=== PATIENT | male | born 1945 | race Caucasian/White ===

== ENCOUNTER 2019-06-01 06:35 | Day surgery (SDC) | payer MEDICARE ==
[2019-05-31 14:41] LABS: BASOPHILS # (AUTO) 0.1 X10'3 (0-0.2); BASOPHILS % (AUTO) 0.9 % (0-1); EOSINOPHILS # (AUTO) 0.2 X10'3 (0-0.9); EOSINOPHILS % (AUTO) 2.8 % (0-6); HEMATOCRIT 33.5 % (42.0-52.0); HEMOGLOBIN 10.8 g/dl (14.0-17.9); LYMPHOCYTES # (AUTO) 0.8 X10'3 (1.1-4.8); LYMPHOCYTES % (AUTO) 12.8 % (21-51); MEAN CORPUSCULAR HEMOGLOBIN 25.6 PG (27.0-31.0); MEAN CORPUSCULAR HGB CONC 32.3 g/dL (33.0-36.5); MEAN CORPUSCULAR VOLUME 79.4 FL (78-98); MEAN PLATELET VOLUME 7.4 FL (7.4-10.4); MONOCYTES # (AUTO) 0.5 X10'3 (0-0.9); MONOCYTES % (AUTO) 7.5 % (2-12); NEUTROPHILS # (AUTO) 4.6 X10'3 (1.8-7.7); PLATELET COUNT 271 X10'3 (140-440); RED BLOOD COUNT 4.22 X10'6 (4.70-6.10); RED CELL DISTRIBUTION WIDTH 17.9 % (11.5-14.5); WHITE BLOOD COUNT 6.1 X10'3 (4.5-11.0)
[2019-05-31 14:55] LABS: ANION GAP 5 (8-16); BLOOD UREA NITROGEN 40 MG/DL (7-18); BUN/CREATININE RATIO 20.6 (5.4-32.0); CALCIUM 8.8 MG/DL (8.5-10.1); CHLORIDE 101 MMOL/L (99-107); CREATININE 1.94 MG/DL (0.60-1.10); GLUCOSE 141 MG/DL (70-104); POTASSIUM 3.5 MMOL/L (3.5-5.1); SODIUM 144 MMOL/L (135-145); TOTAL CARBON DIOXIDE 38.3 MMOL/L (24-32); eGFR 34 ML/MIN
[~2019-06-01] VITALS: Ht 182.9 cm; Wt 130.4 kg
[2019-06-01] VITALS (12 sets, daily range): BP systolic 133–166; BP diastolic 55–95
[~2019-06-01 06:35] MED LIST: AMLO10TA PO; ATEN50TA8 PO; DAPT500V6 IV; FURO-149 PO; GABA-530 PO; HYDR-4353 PO; INSU100V13 SQ; LANTUS SQ; OMEP-50 PO; TRAM50TA2 PO; TRAZ-251 PO
[2019-06-01] MEDS ORDERED: diphenhydrAMINE 25mg capsule PO ONE (07:00)
[2019-06-01] MEDS ORDERED: amiodarone in dextrose, iso-osm 150mg/100ml bag IV ONE (07:00)
[2019-06-01] MEDS ORDERED: MIDAZolam 5mg/ml 2ml vial IV ONE (07:00)
[2019-06-01] MEDS ORDERED: normal saline 1000ml 1,000 ML IV SCH (07:00)
[2019-06-01] MEDS ORDERED: LORazepam 0.5 MG tablet PO ONE (07:00)
[2019-06-01] MEDS ORDERED: morphine 10mg/ml inj. IV ONE (07:00)
[2019-06-01] MEDS ORDERED: atropine 0.1mg/ml 10ml syringe IV ONE (07:00)
[2019-06-01] MEDS ORDERED: ATOR10TA87 PO (08:18)
[2019-06-01] MEDS ORDERED: HYDR-3686 PO (08:18)
[2019-06-01] MEDS ORDERED: BUSP10TA11 PO (08:18)
[2019-06-01] MEDS ORDERED: ASPI-1265 PO (08:18)
[2019-06-01] MEDS ORDERED: METO5TAB7 PO (08:18)
[2019-06-01] MEDS ORDERED: APIX5TAB3 PO (08:18)
[2019-06-01] MEDS ORDERED: ROPI0.5T2 PO (08:18)
== END 2019-06-01 10:45 | disposition home or self-care (01) ==
LOC: SSTAY O 06:35
PROVIDERS: ATTEND Internal Medicine Cardiovascular Disease
DX: I48.1 Persistent atrial fibrillation (principal); E11.9 Type 2 diabetes mellitus without complications; I10 Essential (primary) hypertension; I27.20 Pulmonary hypertension, unspecified; Z79.82 Long term (current) use of aspirin; Z79.899 Other long term (current) drug therapy; Z79.4 Long term (current) use of insulin
CPT/HCPCS: 36415; 80048; 82948; 85025; 85610; 92960; J0282; J0461; J2250; J2270; J7030; Q0163; 93005

== ENCOUNTER 2019-06-06 03:30 | Inpatient (IN) | payer MEDICARE ==
[~2019-06-06] VITALS: Ht 182.9 cm; Wt 129.4 kg
[~2019-06-06 03:30] MED LIST changes: +APIX5TAB3 PO; +ASPI-1265 PO; +ATOR10TA87 PO; +BUSP10TA11 PO; -DAPT500V6 IV; +HYDR-3686 PO; +METO5TAB7 PO; +ROPI0.5T2 PO
[2019-06-06] MEDS ORDERED: furosemide 10 MG/1 ML 10ml inj IV ONE (04:15)
[2019-06-06 04:49] LABS: BASOPHILS # (AUTO) 0.1 X10'3 (0-0.2); BASOPHILS % (AUTO) 0.9 % (0-1); EOSINOPHILS # (AUTO) 0.2 X10'3 (0-0.9); EOSINOPHILS % (AUTO) 2.6 % (0-6); HEMATOCRIT 33.3 % (42.0-52.0); HEMOGLOBIN 10.7 g/dl (14.0-17.9); LYMPHOCYTES # (AUTO) 0.6 X10'3 (1.1-4.8); LYMPHOCYTES % (AUTO) 8.4 % (21-51); MEAN CORPUSCULAR HEMOGLOBIN 25.8 PG (27.0-31.0); MEAN CORPUSCULAR HGB CONC 32.3 g/dL (33.0-36.5); MEAN CORPUSCULAR VOLUME 79.9 FL (78-98); MEAN PLATELET VOLUME 7.3 FL (7.4-10.4); MONOCYTES # (AUTO) 0.5 X10'3 (0-0.9); MONOCYTES % (AUTO) 6.4 % (2-12); NEUTROPHILS # (AUTO) 6.1 X10'3 (1.8-7.7); NEUTROPHILS % (AUTO) 81.7 % (42-75); PARTIAL THROMBOPLASTIN TIME 32 SECONDS (22-32); PLATELET COUNT 242 X10'3 (140-440); RED BLOOD COUNT 4.17 X10'6 (4.70-6.10); RED CELL DISTRIBUTION WIDTH 17.7 % (11.5-14.5); WHITE BLOOD COUNT 7.5 X10'3 (4.5-11.0)
[2019-06-06 04:54] LABS: ALANINE AMINOTRANSFERASE 16 U/L (12-78); ALBUMIN/GLOBULIN RATIO 0.7 (1.1-1.5); ALKALINE PHOSPHATASE 86 IU/L (46-116); ANION GAP 6 (8-16); ASPARTATE AMINO TRANSFERASE 19 U/L (10-37); BILIRUBIN,TOTAL 0.7 MG/DL (0.1-1.0); BLOOD UREA NITROGEN 27 MG/DL (7-18); BUN/CREATININE RATIO 16.8 (5.4-32.0); CALCIUM 8.6 MG/DL (8.5-10.1); CHLORIDE 102 MMOL/L (99-107); CREATININE 1.61 MG/DL (0.60-1.10); GLUCOSE 105 MG/DL (70-104); POTASSIUM 3.4 MMOL/L (3.5-5.1); SODIUM 145 MMOL/L (135-145); TOTAL CARBON DIOXIDE 37.4 MMOL/L (24-32); TOTAL PROTEIN 7.3 G/DL (6.4-8.2); eGFR 42 ML/MIN
[2019-06-06] MEDS ORDERED: magnesium hydroxide 30ml (MOM) UD suspension PO PRN (05:45)
[2019-06-06] MEDS ORDERED: mag hydrox/Alum hydrox/simeth 30ml oral suspension PO PRN (05:45)
[2019-06-06] MEDS ORDERED: acetaminophen 325mg tablet PO PRN (05:45)
[2019-06-06] MEDS ORDERED: ondansetron/PF 4mg/2ml inj IV PRN (05:45)
[2019-06-06 05:56] LABS: ABG HCO3 36.7 mmol/L (22.0-26.0); ABG OXYGEN SATURATION 95.2 % (95-98); ABG PCO2 (T) 54.1 mmHg (35.0-45.0); ABG PH (T) 7.449 (7.350-7.450); ABG PO2 (T) 76.2 mmHg (83-108); ALLEN'S TEST Positive; FCOHb 1.5 % (0.5-1.5); FLOW 8 L/min; FMetHb 0.2 % (0.3-1.12); FO2Hb 93.6 % (94-100); PATIENT TEMPERATURE 37.1; TOTAL HEMOGLOBIN 11.8 G/dl (14.0-17.9)
--- NOTE | 2019-06-06 08:15 | NUR ---
Patient in room ED 15. I have received report from Haydee FLOWERS and had the opportunity to ask questions and assume patient care.
[2019-06-06 08:30] VITALS: BP 157/70
[2019-06-06] MEDS ORDERED: aspirin 325mg tablet PO SCH (08:30)
--- NOTE | 2019-06-06 08:30 | NUR ---
Received patient from ER. Patient stable and vital signs within normal limits. Patient oriented to room and call light.
[2019-06-06] MEDS ORDERED: magnesium Cl slow-release 64mg tablet PO PRN (10:10)
[2019-06-06] MEDS ORDERED: magnesium 4gm in 100ml NS 100 ML IV PRN (10:10)
[2019-06-06] MEDS ORDERED: traMADol 50MG tablet PO PRN (10:10)
[2019-06-06] MEDS ORDERED: potassium Cl 20 mEq SR tablet PO PRN (10:10)
[2019-06-06] MEDS ORDERED: potassium CL 10mEq/100ml bag 100 ML IV PRN (10:10)
--- NOTE | 2019-06-06 10:12 | NUR ---
Informed Dr. Garcia of patients heart rate. Instructed to stop Amiodarone drip and push 500mcg of digoxin. Addendum: 06/06/19 at 1014 by Mague Barahona RN Note entered in error, incorrect patient.
[2019-06-06] MEDS ORDERED: methylPREDNISolone sod succ 125mg/2ml vial IV ONE (10:20)
[2019-06-06] MEDS: bumetanide 0.25mg/ml 4ml vial IV SCH ×2 (10:46→20:08)
[2019-06-06] MEDS: gabapentin 300mg capsule PO SCH ×2 (10:48→20:15)
[2019-06-06] MEDS: apixaban 5mg tablet PO SCH ×2 (10:49→20:14)
[2019-06-06] MEDS: amLODIPine 5mg tablet PO SCH (10:49)
[2019-06-06] MEDS: atenolol 50mg tablet PO SCH (10:52)
[2019-06-06 11:00] VITALS: BP 140/62
[2019-06-06] MEDS: azithromycin/NS 500mg/250ml 250 ML IV SCH (11:09)
[2019-06-06] MEDS: potassium Cl 20 mEq SR tablet PO PRN (12:19)
[2019-06-06] MEDS ORDERED: hydrOXYzine 25 MG tablet PO SCH (13:00)
[2019-06-06] MEDS: ipratropium/albuterol 3ml nebule NEB SCH ×3 (14:01→23:21)
--- NOTE | 2019-06-06 14:05 | NUR ---
Spoke with Dr. Dasilva regarding patient being anxious about difficulty breathing. Patients vitals within normal limits. Dr. Dasilva instructed to give Ativan PRN for anxiety.
[2019-06-06] MEDS: LORazepam 1 MG tablet PO PRN ×2 (14:16→21:47)
[2019-06-06] MEDS: methylPREDNISolone sod succ 125mg/2ml vial IV SCH ×2 (14:17→20:13)
[2019-06-06] MEDS: CefTRIAXone/D5W-Rocephin 1gm 50 ML IV SCH (14:18)
[2019-06-06 15:00] VITALS: BP 115/72
--- NOTE | 2019-06-06 17:20 | NUR ---
Orientee documentation: I have reviewed and agree with all interventions, assessments performed and documented by Mague FLOWERS. Orientee Medication Administration: For this medication-pass time frame, all medication were reviewed, dispensed, administered and documented per hospital policy by Mague FLOWERS.
[2019-06-06 18:00] VITALS: BP 118/59
--- NOTE | 2019-06-06 18:26 | NUR ---
Problems reprioritized. Patient report given, questions answered & plan of care reviewed with Kailyn RN. Patient stable at time report given.
--- NOTE | 2019-06-06 18:45 | NUR ---
Patient in room PCU 3023. I have received report from Leana FLOWERS and had the opportunity to ask questions and assume patient care.
[2019-06-06] MEDS ORDERED: gabapentin 100mg capsule PO SCH (20:00)
[2019-06-06] MEDS ORDERED: furosemide 40mg tablet PO SCH (20:00)
[2019-06-06] MEDS ORDERED: traZODone 50mg tablet PO SCH (20:00)
[2019-06-06] MEDS: furosemide 40mg/4ml inj IV SCH (20:13)
[2019-06-06] MEDS: busPIRone 5mg tablet PO SCH (20:14)
[2019-06-06] MEDS: traZODone 50mg tablet PO SCH (20:15)
[2019-06-06] MEDS: ROPINIRole 0.25mg tablet PO SCH (20:15)
[2019-06-06] MEDS ORDERED: atenolol 50mg tablet PO SCH (21:00)
[2019-06-06 23:00] VITALS: BP 111/79
--- NOTE | 2019-06-07 00:14 | NUR ---
PAGER ID: [phone] MESSAGE: Usman Clifton pt Almas Malik, [id number] pt could not sleep and anxious, requests something for sleeping. He got Trazadone @2000 and Ativan po @0130, Kailyn [phone]!
--- NOTE | 2019-06-07 00:17 | NUR ---
Dr. cyr gave an order of 10mg ambian
[2019-06-07] MEDS: zolpidem 5mg tablet PO PRN ×2 (00:25→23:46)
--- NOTE | 2019-06-07 01:38 | NUR ---
pt was moved to 3026 A near nurses' station for better observation
[2019-06-07] MEDS: methylPREDNISolone sod succ 125mg/2ml vial IV SCH ×4 (01:43→21:28)
[2019-06-07 03:00] VITALS: BP 106/50
[2019-06-07] MEDS: ipratropium/albuterol 3ml nebule NEB SCH ×6 (03:29→23:21)
[2019-06-07 05:15] LABS: BASOPHILS % (AUTO) 0.1 % (0-1); EOSINOPHILS % (AUTO) 0 % (0-6); HEMATOCRIT 32.4 % (42.0-52.0); HEMOGLOBIN 10.5 g/dl (14.0-17.9); LYMPHOCYTES # (AUTO) 0.3 X10'3 (1.1-4.8); LYMPHOCYTES % (AUTO) 8.1 % (21-51); MEAN CORPUSCULAR HEMOGLOBIN 25.7 PG (27.0-31.0); MEAN CORPUSCULAR HGB CONC 32.3 g/dL (33.0-36.5); MEAN CORPUSCULAR VOLUME 79.6 FL (78-98); MEAN PLATELET VOLUME 7.6 FL (7.4-10.4); MONOCYTES # (AUTO) 0.1 X10'3 (0-0.9); MONOCYTES % (AUTO) 1.6 % (2-12); NEUTROPHILS # (AUTO) 3.6 X10'3 (1.8-7.7); NEUTROPHILS % (AUTO) 90.2 % (42-75); PLATELET COUNT 223 X10'3 (140-440); RED BLOOD COUNT 4.08 X10'6 (4.70-6.10); RED CELL DISTRIBUTION WIDTH 17.9 % (11.5-14.5)
[2019-06-07 05:43] LABS: ALANINE AMINOTRANSFERASE 16 U/L (12-78); ALBUMIN/GLOBULIN RATIO 0.7 (1.1-1.5); ALKALINE PHOSPHATASE 88 IU/L (46-116); ANION GAP 11 (8-16); ASPARTATE AMINO TRANSFERASE 19 U/L (10-37); BILIRUBIN,TOTAL 0.9 MG/DL (0.1-1.0); BLOOD UREA NITROGEN 43 MG/DL (7-18); BUN/CREATININE RATIO 20.2 (5.4-32.0); CALCIUM 8.7 MG/DL (8.5-10.1); CHLORIDE 93 MMOL/L (99-107); CREATININE 2.13 MG/DL (0.60-1.10); PHOSPHORUS 4.7 MG/DL (2.3-4.5); POTASSIUM 3.8 MMOL/L (3.5-5.1); SODIUM 136 MMOL/L (135-145); TOTAL CARBON DIOXIDE 32.5 MMOL/L (24-32); TOTAL PROTEIN 7.5 G/DL (6.4-8.2); eGFR 31 ML/MIN
[2019-06-07 05:47] LABS: GLUCOSE 511 MG/DL (70-104)
[2019-06-07 06:00] VITALS: BP 121/54
--- NOTE | 2019-06-07 06:16 | NUR ---
Patient in room PCU 3026. I have received report from Kailyn FLOWERS and had the opportunity to ask questions and assume patient care.
--- NOTE | 2019-06-07 06:18 | NUR ---
Problems reprioritized. Patient report given, questions answered & plan of care reviewed with Romulo FLOWERS.
--- NOTE | 2019-06-07 06:21 | NUR ---
Dr. cyr gave an order to put pt on hyper/hypoglycemic protocol
[2019-06-07] MEDS ORDERED: dextrose 50%-water 50ml dispensing syringe IV PRN ×2 (06:25)
[2019-06-07] MEDS ORDERED: glucagon, human recombinant 1mg kit SUBCUT PRN (06:25)
[2019-06-07] MEDS ORDERED: dextrose ORAL solution 15 GM/59 ML bottle PO PRN ×2 (06:25)
[2019-06-07 07:15] LABS: HEMOGLOBIN A1C 6.1 % (4.5-6.2)
[2019-06-07] MEDS ORDERED: apixaban 5mg tablet PO SCH (08:00)
[2019-06-07] MEDS: bumetanide 0.25mg/ml 4ml vial IV SCH ×2 (08:00→21:26)
[2019-06-07] MEDS ORDERED: non-formulary drug (Amlodipine Besylate 1 TABLET) PO SCH (08:00)
[2019-06-07] MEDS: insulin Lispro (HumaLOG) vial - multi-dose SQ SCH ×4 (08:40→22:52)
[2019-06-07] MEDS: pantoprazole 40mg Tablet.DR PO SCH (09:08)
[2019-06-07] MEDS: busPIRone 5mg tablet PO SCH ×2 (09:08→21:28)
[2019-06-07] MEDS: gabapentin 300mg capsule PO SCH ×2 (09:08→21:43)
[2019-06-07] MEDS: amLODIPine 5mg tablet PO SCH (09:09)
[2019-06-07] MEDS: apixaban 5mg tablet PO SCH ×2 (09:09→21:43)
[2019-06-07] MEDS: aspirin 81mg tab.chew PO SCH (09:09)
[2019-06-07] MEDS: atenolol 50mg tablet PO SCH (09:09)
[2019-06-07] MEDS: atorvastatin 10mg tablet PO SCH (09:09)
[2019-06-07 11:00] VITALS: BP 118/51
[2019-06-07] MEDS: metolazone 2.5mg tablet PO SCH (12:40)
[2019-06-07] MEDS: furosemide 40mg/4ml inj IV SCH ×2 (12:42→21:27)
[2019-06-07] MEDS: azithromycin/NS 500mg/250ml 250 ML IV SCH (12:56)
[2019-06-07 15:00] VITALS: BP 103/46
[2019-06-07] MEDS: LORazepam 1 MG tablet PO PRN (15:21)
[2019-06-07] MEDS: CefTRIAXone/D5W-Rocephin 1gm 50 ML IV SCH (15:33)
[2019-06-07 18:00] VITALS: BP 113/42
--- NOTE | 2019-06-07 18:20 | NUR ---
Problems reprioritized. Patient report given, questions answered & plan of care reviewed with Kailyn FLOWERS. Patient stable at at transfer of care.
--- NOTE | 2019-06-07 18:29 | NUR ---
Problems reprioritized. Patient report given, questions answered & plan of care reviewed with Kailyn FLOWERS.
[2019-06-07] MEDS: traZODone 50mg tablet PO SCH (21:43)
[2019-06-07] MEDS: ROPINIRole 0.25mg tablet PO SCH (21:44)
[2019-06-07] MEDS: insulin glargine (Lantus) pen - multi-dose SQ SCH (21:59)
[2019-06-07 23:00] VITALS: BP 114/57
[2019-06-08] MEDS: methylPREDNISolone sod succ 125mg/2ml vial IV SCH ×4 (02:38→21:18)
[2019-06-08] MEDS: ipratropium/albuterol 3ml nebule NEB SCH ×8 (03:00→23:45)
[2019-06-08 06:00] VITALS: BP 134/56
--- NOTE | 2019-06-08 06:19 | NUR ---
Problems reprioritized. Patient report given, questions answered & plan of care reviewed with Romulo FLOWERS.
--- NOTE | 2019-06-08 06:34 | NUR ---
Patient in room PCU 3026. I have received report from Kailyn FLOWERS and had the opportunity to ask questions and assume patient care.
[2019-06-08] MEDS: azithromycin 250mg tablet PO SCH (08:50)
[2019-06-08] MEDS: apixaban 5mg tablet PO SCH ×2 (08:50→19:35)
[2019-06-08] MEDS: busPIRone 5mg tablet PO SCH ×2 (08:50→19:35)
[2019-06-08] MEDS: gabapentin 300mg capsule PO SCH ×2 (08:50→19:35)
[2019-06-08] MEDS: aspirin 81mg tab.chew PO SCH (08:51)
[2019-06-08] MEDS: amLODIPine 5mg tablet PO SCH (08:51)
[2019-06-08] MEDS: metolazone 2.5mg tablet PO SCH (08:51)
[2019-06-08] MEDS: atenolol 50mg tablet PO SCH (08:51)
[2019-06-08] MEDS: atorvastatin 10mg tablet PO SCH (08:51)
[2019-06-08] MEDS: CefTRIAXone/D5W-Rocephin 1gm 50 ML IV SCH (08:52)
[2019-06-08] MEDS: furosemide 40mg/4ml inj IV SCH ×2 (08:52→21:17)
[2019-06-08] MEDS: bumetanide 0.25mg/ml 4ml vial IV SCH ×2 (08:52→21:18)
[2019-06-08] MEDS: pantoprazole 40mg Tablet.DR PO SCH (08:57)
[2019-06-08 09:10] LABS: BASOPHILS % (AUTO) 0.1 % (0-1); EOSINOPHILS % (AUTO) 0 % (0-6); HEMOGLOBIN 10.7 g/dl (14.0-17.9); LYMPHOCYTES # (AUTO) 0.5 X10'3 (1.1-4.8); LYMPHOCYTES % (AUTO) 6.4 % (21-51); MEAN CORPUSCULAR HEMOGLOBIN 25.6 PG (27.0-31.0); MEAN CORPUSCULAR HGB CONC 32.4 g/dL (33.0-36.5); MEAN CORPUSCULAR VOLUME 79.1 FL (78-98); MEAN PLATELET VOLUME 7.7 FL (7.4-10.4); MONOCYTES # (AUTO) 0.1 X10'3 (0-0.9); MONOCYTES % (AUTO) 1.6 % (2-12); NEUTROPHILS # (AUTO) 6.6 X10'3 (1.8-7.7); NEUTROPHILS % (AUTO) 91.9 % (42-75); PLATELET COUNT 233 X10'3 (140-440); RED BLOOD COUNT 4.17 X10'6 (4.70-6.10); RED CELL DISTRIBUTION WIDTH 17.9 % (11.5-14.5); WHITE BLOOD COUNT 7.2 X10'3 (4.5-11.0)
[2019-06-08] MEDS: insulin Lispro (HumaLOG) vial - multi-dose SQ SCH ×3 (09:25→19:25)
[2019-06-08 09:36] LABS: ALANINE AMINOTRANSFERASE 16 U/L (12-78); ALBUMIN/GLOBULIN RATIO 0.7 (1.1-1.5); ALKALINE PHOSPHATASE 78 IU/L (46-116); ANION GAP 6 (8-16); ASPARTATE AMINO TRANSFERASE 29 U/L (10-37); BILIRUBIN,TOTAL 0.5 MG/DL (0.1-1.0); BLOOD UREA NITROGEN 60 MG/DL (7-18); BUN/CREATININE RATIO 33.1 (5.4-32.0); CALCIUM 8.7 MG/DL (8.5-10.1); CHLORIDE 99 MMOL/L (99-107); CREATININE 1.81 MG/DL (0.60-1.10); GLUCOSE 371 MG/DL (70-104); MAGNESIUM 2.4 MG/DL (1.5-2.4); PHOSPHORUS 4.6 MG/DL (2.3-4.5); POTASSIUM 3.6 MMOL/L (3.5-5.1); SODIUM 141 MMOL/L (135-145); TOTAL CARBON DIOXIDE 35.7 MMOL/L (24-32); TOTAL PROTEIN 7.3 G/DL (6.4-8.2); eGFR 37 ML/MIN
[2019-06-08 11:00] VITALS: BP 119/45
[2019-06-08] MEDS ORDERED: insulin Lispro (HumaLOG) vial - multi-dose SQ ONE (12:20)
[2019-06-08 15:00] VITALS: BP 117/52
--- NOTE | 2019-06-08 18:29 | NUR ---
Problems reprioritized. Patient report given, questions answered & plan of care reviewed with Candy FLOWERS. Patient stable at time of transfer of care.
[2019-06-08 19:00] VITALS: BP 116/50
[2019-06-08] MEDS: ROPINIRole 0.25mg tablet PO SCH (20:17)
[2019-06-08] MEDS: traZODone 50mg tablet PO SCH (20:17)
[2019-06-08] MEDS: zolpidem 5mg tablet PO PRN (21:18)
[2019-06-08] MEDS: LORazepam 1 MG tablet PO PRN (21:18)
[2019-06-08] MEDS: insulin glargine (Lantus) pen - multi-dose SQ SCH (21:32)
[2019-06-08 23:00] VITALS: BP 115/67
[2019-06-09] MEDS: methylPREDNISolone sod succ 125mg/2ml vial IV SCH ×2 (02:35→08:13)
[2019-06-09 03:00] VITALS: BP 124/46
[2019-06-09] MEDS: ipratropium/albuterol 3ml nebule NEB SCH ×3 (03:00→11:02)
[2019-06-09 05:03] LABS: BASOPHILS % (AUTO) 0 % (0-1); EOSINOPHILS % (AUTO) 0 % (0-6); HEMATOCRIT 32.6 % (42.0-52.0); HEMOGLOBIN 10.8 g/dl (14.0-17.9); LYMPHOCYTES # (AUTO) 0.5 X10'3 (1.1-4.8); LYMPHOCYTES % (AUTO) 6.6 % (21-51); MEAN CORPUSCULAR HEMOGLOBIN 25.9 PG (27.0-31.0); MEAN CORPUSCULAR HGB CONC 33.2 g/dL (33.0-36.5); MEAN CORPUSCULAR VOLUME 78.2 FL (78-98); MEAN PLATELET VOLUME 7.5 FL (7.4-10.4); MONOCYTES # (AUTO) 0.1 X10'3 (0-0.9); MONOCYTES % (AUTO) 1.6 % (2-12); NEUTROPHILS # (AUTO) 6.8 X10'3 (1.8-7.7); NEUTROPHILS % (AUTO) 91.8 % (42-75); PLATELET COUNT 237 X10'3 (140-440); RED BLOOD COUNT 4.17 X10'6 (4.70-6.10); RED CELL DISTRIBUTION WIDTH 17.6 % (11.5-14.5); WHITE BLOOD COUNT 7.4 X10'3 (4.5-11.0)
[2019-06-09 05:10] LABS: ALANINE AMINOTRANSFERASE 21 U/L (12-78); ALBUMIN/GLOBULIN RATIO 0.8 (1.1-1.5); ALKALINE PHOSPHATASE 72 IU/L (46-116); ANION GAP 5 (8-16); ASPARTATE AMINO TRANSFERASE 36 U/L (10-37); BILIRUBIN,TOTAL 0.5 MG/DL (0.1-1.0); BLOOD UREA NITROGEN 70 MG/DL (7-18); BUN/CREATININE RATIO 37.6 (5.4-32.0); CALCIUM 9.1 MG/DL (8.5-10.1); CHLORIDE 100 MMOL/L (99-107); CREATININE 1.86 MG/DL (0.60-1.10); GLUCOSE 225 MG/DL (70-104); MAGNESIUM 2.5 MG/DL (1.5-2.4); PHOSPHORUS 4.3 MG/DL (2.3-4.5); POTASSIUM 3.2 MMOL/L (3.5-5.1); SODIUM 143 MMOL/L (135-145); TOTAL CARBON DIOXIDE 37.9 MMOL/L (24-32); TOTAL PROTEIN 6.9 G/DL (6.4-8.2); eGFR 36 ML/MIN
[2019-06-09] MEDS: potassium Cl 20 mEq SR tablet PO PRN (05:34)
[2019-06-09 06:00] VITALS: BP 106/46
--- NOTE | 2019-06-09 06:09 | NUR ---
Problems reprioritized. Patient report given, questions answered & plan of care reviewed with KRISTIE Robertson .
--- NOTE | 2019-06-09 06:36 | NUR ---
Patient in room PCU 3026. I have received report from KRISTIE Gupta and had the opportunity to ask questions and assume patient care. Patient is currently sleeping in bed, bed locked and low, call light in reach, no acute distress, will continue to monitor.
[2019-06-09] MEDS: amLODIPine 5mg tablet PO SCH (08:00)
[2019-06-09] MEDS: atenolol 50mg tablet PO SCH (08:00)
[2019-06-09] MEDS: bumetanide 0.25mg/ml 4ml vial IV SCH (08:13)
[2019-06-09] MEDS: busPIRone 5mg tablet PO SCH (08:13)
[2019-06-09] MEDS: furosemide 40mg/4ml inj IV SCH (08:13)
[2019-06-09] MEDS: apixaban 5mg tablet PO SCH (08:13)
[2019-06-09] MEDS: aspirin 81mg tab.chew PO SCH (08:14)
[2019-06-09] MEDS: pantoprazole 40mg Tablet.DR PO SCH (08:14)
[2019-06-09] MEDS: atorvastatin 10mg tablet PO SCH (08:14)
[2019-06-09] MEDS: gabapentin 300mg capsule PO SCH (08:14)
[2019-06-09] MEDS: azithromycin 250mg tablet PO SCH (08:18)
[2019-06-09] MEDS: metolazone 2.5mg tablet PO SCH (08:18)
[2019-06-09] MEDS: CefTRIAXone/D5W-Rocephin 1gm 50 ML IV SCH (08:20)
[2019-06-09] MEDS: insulin Lispro (HumaLOG) vial - multi-dose SQ SCH ×2 (08:37→13:13)
--- NOTE | 2019-06-09 08:44 | NUR ---
promotional table spacer PAGER ID: [phone] MESSAGE: KRISTIE Robertson, ext [phone], [id number] Matt Malik fyi patient refused atenolol and amlodipine saying he has not taken them in years and does not want them until he speaks with a doctor about it.
[2019-06-09 11:00] VITALS: BP 114/72
--- NOTE | 2019-06-09 13:43 | NUR ---
Attempted to call report to [facility], no answer, voicemail left for them to call back to receive report
--- NOTE | 2019-06-09 13:45 | NUR ---
Received orders for patient transfer to [facility], belongings gathered, telemetry removed, patient transported by [employer]. Patient stable at time of discharge
--- NOTE | 2019-06-09 14:36 | NUR ---
Report called to Codi Ahuja at [facility] at [phone] after new phone number was obtanied from case mgmt.
[2019-06-09] MEDS ORDERED: lactobacillus rhamnosus 10,000 MMU CELLS/CAPSULE PO SCH (20:00)
== END 2019-06-09 13:43 | DRG 291 ==
LOC: ER 03:30 → ED HOLD 06:28 → PCU 3S 08:42
PROVIDERS: ADMIT Internal Medicine; ATTEND Family Medicine
PROC: 5A09357 Assistance with Respiratory Ventilation, Less than 24 Consecutive Hours, Continuous Positive Airway Pressure (ICD-10-PCS; principal; 2019-06-07)
PROC: 5A09357 Assistance with Respiratory Ventilation, Less than 24 Consecutive Hours, Continuous Positive Airway Pressure (ICD-10-PCS; 2019-06-08)
PROC: 5A09357 Assistance with Respiratory Ventilation, Less than 24 Consecutive Hours, Continuous Positive Airway Pressure (ICD-10-PCS; 2019-06-09)
DX: I13.0 Hypertensive heart and chronic kidney disease with heart failure and stage 1 through stage 4 chronic kidney disease, or unspecified chronic kidney disease (principal); J96.01 Acute respiratory failure with hypoxia; J18.9 Pneumonia, unspecified organism; I50.33 Acute on chronic diastolic (congestive) heart failure; J96.02 Acute respiratory failure with hypercapnia; N17.9 Acute kidney failure, unspecified; E87.2 Acidosis; J44.1 Chronic obstructive pulmonary disease with (acute) exacerbation; J44.0 Chronic obstructive pulmonary disease with (acute) lower respiratory infection; E66.2 Morbid (severe) obesity with alveolar hypoventilation; E11.22 Type 2 diabetes mellitus with diabetic chronic kidney disease; D47.3 Essential (hemorrhagic) thrombocythemia; I27.81 Cor pulmonale (chronic); N18.9 Chronic kidney disease, unspecified; D64.9 Anemia, unspecified; E11.40 Type 2 diabetes mellitus with diabetic neuropathy, unspecified; F32.9 Major depressive disorder, single episode, unspecified; G89.4 Chronic pain syndrome; I48.91 Unspecified atrial fibrillation; I50.810 Right heart failure, unspecified; F41.9 Anxiety disorder, unspecified; M54.9 Dorsalgia, unspecified; E78.5 Hyperlipidemia, unspecified; I25.2 Old myocardial infarction; Z79.01 Long term (current) use of anticoagulants; Z88.8 Allergy status to other drugs, medicaments and biological substances; Z68.38 Body mass index [BMI] 38.0-38.9, adult
CPT/HCPCS: 36415; 36600; 71045; 76937; 80053; 82803; 82948; 83036; 83605; 83735; 83880; 84100; 84484; 85018; 85025; 85610; 85730; 87040; 87081; 93005; 93308; 94640; 94760; 96374; 97110; 97112; 97116; 97161; 97530; 99285; G0378; J0456; J0696; J1815; J1940; J2930; J3490

== ENCOUNTER 2019-06-13 08:52 | Inpatient (IN) | payer MEDICARE ==
[~2019-06-13] VITALS: Ht 182.9 cm; Wt 120.9 kg
[2019-06-13 09:57] LABS: BASOPHILS % (AUTO) 0.2 % (0-1); EOSINOPHILS # (AUTO) 0.1 X10'3 (0-0.9); HEMATOCRIT 38.8 % (42.0-52.0); HEMOGLOBIN 12.6 g/dl (14.0-17.9); LYMPHOCYTES # (AUTO) 0.9 X10'3 (1.1-4.8); MEAN CORPUSCULAR HEMOGLOBIN 25.4 PG (27.0-31.0); MEAN CORPUSCULAR HGB CONC 32.3 g/dL (33.0-36.5); MEAN CORPUSCULAR VOLUME 78.6 FL (78-98); MEAN PLATELET VOLUME 8.1 FL (7.4-10.4); MONOCYTES # (AUTO) 0.7 X10'3 (0-0.9); MONOCYTES % (AUTO) 5.7 % (2-12); NEUTROPHILS # (AUTO) 9.9 X10'3 (1.8-7.7); NEUTROPHILS % (AUTO) 85.1 % (42-75); PLATELET COUNT 293 X10'3 (140-440); RED BLOOD COUNT 4.94 X10'6 (4.70-6.10); WHITE BLOOD COUNT 11.6 X10'3 (4.5-11.0)
[2019-06-13 10:36] LABS: ALANINE AMINOTRANSFERASE 28 U/L (12-78); ALBUMIN 3.4 G/DL (3.4-5.0); ALBUMIN/GLOBULIN RATIO 0.9 (1.1-1.5); ALKALINE PHOSPHATASE 75 IU/L (46-116); ANION GAP 7 (8-16); ASPARTATE AMINO TRANSFERASE 39 U/L (10-37); BLOOD UREA NITROGEN 55 MG/DL (7-18); BUN/CREATININE RATIO 33.1 (5.4-32.0); CALCIUM 8.4 MG/DL (8.5-10.1); CHLORIDE 99 MMOL/L (99-107); CREATININE 1.66 MG/DL (0.60-1.10); GLUCOSE 52 MG/DL (70-104); SODIUM 141 MMOL/L (135-145); TOTAL CARBON DIOXIDE 35.4 MMOL/L (24-32); TOTAL PROTEIN 7.1 G/DL (6.4-8.2); eGFR 41 ML/MIN
[2019-06-13 10:40] LABS: POTASSIUM 2.6 MMOL/L (3.5-5.1)
[2019-06-13] MEDS ORDERED: potassium Cl 20 mEq SR tablet PO ONE (10:45)
[2019-06-13] MEDS ORDERED: magnesium 2GM in 50ml NS 50 ML IV SCH (10:45)
[2019-06-13] MEDS ORDERED: furosemide 10 MG/1 ML 10ml inj IV ONE (10:45)
[2019-06-13] MEDS ORDERED: magnesium 2GM in 50ml NS 50 ML IV ONE (10:58)
[2019-06-13] MEDS: potassium Cl 10 mEq/100mL bag IV SCH ×2 (11:09→12:45)
[2019-06-13 11:23] LABS: MAGNESIUM 2.2 MG/DL (1.5-2.4)
[2019-06-13] MEDS ORDERED: mag hydrox/Alum hydrox/simeth 30ml oral suspension PO PRN (11:45)
[2019-06-13] MEDS ORDERED: potassium CL 10mEq/100ml bag 100 ML IV PRN (11:45)
[2019-06-13] MEDS ORDERED: potassium Cl 20 mEq SR tablet PO PRN (11:45)
[2019-06-13] MEDS ORDERED: ondansetron/PF 4mg/2ml inj IV PRN (11:45)
[2019-06-13] MEDS ORDERED: acetaminophen 325mg tablet PO PRN (11:45)
--- NOTE | 2019-06-13 12:21 | NUR ---
PT BG 62, GAVE PT A SANDWICH. PT SITTING UP IN BED EATING.
[2019-06-13] MEDS: albuterol 2.5 MG/3 ML nebule NEB SCH ×3 (13:01→23:57)
--- NOTE | 2019-06-13 16:15 | NUR ---
Patient in room ED 7. I have received report from Mikey FLOWERS and had the opportunity to ask questions and assume patient care.
--- NOTE | 2019-06-13 16:30 | NUR ---
Patient report given, questions answered & plan of care reviewed with Denver FLOWERS.
[2019-06-13] MEDS: cefepime 1GM/NS ADD-VANTAGE 100 ML IV SCH ×2 (18:24→23:46)
[2019-06-13] MEDS: HYDROcodone/acetaminophen 10/325mg tab PO PRN ×2 (18:33→22:33)
--- NOTE | 2019-06-13 19:21 | NUR ---
Patient in room PCU 3026. I have received report from Everette RN (who got report from ED RN) and had the opportunity to ask questions and assume patient care. Patient stated that he is missing the power cord for this USB charging device and I called down to ED to try and locate said cord (the have yet to call back). All other belongings are in patient specific closet, able to reposition in bed for comfort, and heel wound was pictured and noted. Will continue to monitor.
[2019-06-13 20:00] VITALS: BP 122/56
[2019-06-13] MEDS: ROPINIRole 0.25mg tablet PO SCH (20:53)
[2019-06-13] MEDS: heparin, porcine 5000 units/ml vial SQ SCH (20:54)
[2019-06-13] MEDS: apixaban 5mg tablet PO SCH (20:55)
[2019-06-13] MEDS: atenolol 50mg tablet PO SCH (20:55)
[2019-06-13 23:00] VITALS: BP 124/55
--- NOTE | 2019-06-14 01:49 | NUR ---
Consultations Wound consult was ordered for heel wound, pictures were taken and in the chart. Case management order was put in because patient stated "my has left me and I need help. I want to go to a place where I can get the help."
[2019-06-14] MEDS: HYDROcodone/acetaminophen 10/325mg tab PO PRN ×5 (02:33→21:19)
[2019-06-14 03:00] VITALS: BP 130/53
[2019-06-14] MEDS: albuterol 2.5 MG/3 ML nebule NEB SCH ×6 (03:33→23:28)
[2019-06-14] MEDS: magnesium hydroxide 30ml (MOM) UD suspension PO PRN ×2 (04:40→15:49)
[2019-06-14 05:26] LABS: BASOPHILS % (AUTO) 0.1 % (0-1); EOSINOPHILS # (AUTO) 0.2 X10'3 (0-0.9); EOSINOPHILS % (AUTO) 1.7 % (0-6); HEMATOCRIT 36.6 % (42.0-52.0); HEMOGLOBIN 12.1 g/dl (14.0-17.9); LYMPHOCYTES # (AUTO) 1.4 X10'3 (1.1-4.8); MEAN CORPUSCULAR HEMOGLOBIN 26.2 PG (27.0-31.0); MEAN CORPUSCULAR HGB CONC 33.1 g/dL (33.0-36.5); MEAN PLATELET VOLUME 8.4 FL (7.4-10.4); MONOCYTES # (AUTO) 0.8 X10'3 (0-0.9); MONOCYTES % (AUTO) 7.6 % (2-12); NEUTROPHILS # (AUTO) 8.2 X10'3 (1.8-7.7); NEUTROPHILS % (AUTO) 77.6 % (42-75); PLATELET COUNT 279 X10'3 (140-440); RED BLOOD COUNT 4.64 X10'6 (4.70-6.10); RED CELL DISTRIBUTION WIDTH 18.5 % (11.5-14.5); WHITE BLOOD COUNT 10.6 X10'3 (4.5-11.0)
[2019-06-14 05:28] LABS: ALBUMIN 3.3 G/DL (3.4-5.0); ANION GAP 5 (8-16); BLOOD UREA NITROGEN 50 MG/DL (7-18); BUN/CREATININE RATIO 26.2 (5.4-32.0); CALCIUM 8.6 MG/DL (8.5-10.1); CHLORIDE 98 MMOL/L (99-107); CREATININE 1.91 MG/DL (0.60-1.10); GLUCOSE 133 MG/DL (70-104); SODIUM 141 MMOL/L (135-145); TOTAL CARBON DIOXIDE 37.8 MMOL/L (24-32); eGFR 35 ML/MIN
[2019-06-14 05:40] LABS: POTASSIUM 2.6 MMOL/L (3.5-5.1)
[2019-06-14] MEDS: potassium Cl 20 mEq SR tablet PO PRN ×3 (05:47→15:50)
[2019-06-14 06:00] VITALS: BP 128/48
--- NOTE | 2019-06-14 06:00 | NUR ---
END NOC NOTE: Patient has been receiving [place] 10 for his pain every time it is available, he states 10/10 pain for his right shoulder and back. Patient wore CPAP most of the night. Patient stated that he was constipated, MOM given. Potassium was replaced once before shift change for the critical 2.6 lab level. Seems to be in better spirits at the moment.
--- NOTE | 2019-06-14 06:30 | NUR ---
Patient in room PCU 3026. I have received report from KRISTIE Joyner and had the opportunity to ask questions and assume patient care.
--- NOTE | 2019-06-14 06:49 | NUR ---
Problems reprioritized. Patient report given, questions answered & plan of care reviewed with Celine FLOWERS.
[2019-06-14] MEDS ORDERED: furosemide 10 MG/1 ML 10ml inj IV SCH (08:00)
[2019-06-14] MEDS: heparin, porcine 5000 units/ml vial SQ SCH ×2 (08:11→19:49)
[2019-06-14] MEDS: cefepime 1GM/NS ADD-VANTAGE 100 ML IV SCH ×2 (08:11→15:50)
[2019-06-14] MEDS: apixaban 5mg tablet PO SCH ×2 (08:12→19:51)
--- NOTE | 2019-06-14 09:33 | NUR ---
Spoke with Dr. Boswell regarding potassium level of 2.6 and scheduled dose of Lasix ordered. Received orders to give the scheduled Lasix and to recheck potassium in 2 hours.
[2019-06-14] MEDS: metolazone 2.5mg tablet PO SCH (09:41)
[2019-06-14 11:00] VITALS: BP 130/50
--- NOTE | 2019-06-14 12:08 | NUR ---
Malnutrition consult RE "poor appetite:" Pt admit w/ SOB currently PO 75-100% first meal meeting needs so far. Pt has no significant edema, mild weakness, and current 121kg wt is pt stated vs 129kg scaled wt prior admit 1 week ago. Wt loss likely not significant given prior scaled wt. Pt fails to meet minimum malnutrition criteria at this time. Will continue to monitor. Addendum: 06/14/19 at [address] Amended: Links added.
[2019-06-14] MEDS ORDERED: MESSAGE TO PHARMACY PO ONE (13:35)
[2019-06-14] MEDS ORDERED: glucagon, human recombinant 1mg kit SUBCUT PRN (13:35)
[2019-06-14] MEDS ORDERED: dextrose 50%-water 50ml dispensing syringe IV PRN ×2 (13:35)
[2019-06-14] MEDS ORDERED: dextrose ORAL solution 15 GM/59 ML bottle PO PRN ×2 (13:35)
[2019-06-14 15:00] VITALS: BP 155/87
--- NOTE | 2019-06-14 15:47 | NUR ---
Paged hospitalist, "Celine Marcus- [facility] req needs addressed for Rm. [id number] Almas Malik."
[2019-06-14] MEDS: insulin Lispro (HumaLOG) vial - multi-dose SQ SCH ×2 (17:06→19:48)
--- NOTE | 2019-06-14 17:14 | NUR ---
Orientee documentation and med administration: I have reviewed and agree with all interventions, assessments performed and documented by Linda FLOWERS.
[2019-06-14 18:00] VITALS: BP 103/76
--- NOTE | 2019-06-14 18:53 | NUR ---
Problems reprioritized. Patient report given, questions answered & plan of care reviewed with KRISTIE Hale.
--- NOTE | 2019-06-14 19:05 | NUR ---
Patient in room PCU 3026. I have received report from Celine FLOWERS and Linda FLOWERS and had the opportunity to ask questions and assume patient care.
[2019-06-14] MEDS: lactobacillus rhamnosus 10,000 MMU CELLS/CAPSULE PO SCH (19:51)
[2019-06-14] MEDS: insulin glargine (Lantus) pen - multi-dose SQ SCH (21:18)
[2019-06-14] MEDS: ROPINIRole 0.25mg tablet PO SCH (21:20)
[2019-06-14] MEDS: atenolol 50mg tablet PO SCH (21:20)
[2019-06-14 22:00] VITALS: BP 148/62
[2019-06-15 02:00] VITALS: BP 140/47
[2019-06-15] MEDS: albuterol 2.5 MG/3 ML nebule NEB SCH ×6 (03:57→23:40)
[2019-06-15] MEDS: HYDROcodone/acetaminophen 10/325mg tab PO PRN ×3 (04:53→17:11)
[2019-06-15 05:50] LABS: BASOPHILS % (AUTO) 0.2 % (0-1); EOSINOPHILS # (AUTO) 0.2 X10'3 (0-0.9); EOSINOPHILS % (AUTO) 1.7 % (0-6); HEMATOCRIT 36.9 % (42.0-52.0); HEMOGLOBIN 12.3 g/dl (14.0-17.9); LYMPHOCYTES # (AUTO) 1.1 X10'3 (1.1-4.8); LYMPHOCYTES % (AUTO) 10.2 % (21-51); MEAN CORPUSCULAR HEMOGLOBIN 26.3 PG (27.0-31.0); MEAN CORPUSCULAR HGB CONC 33.3 g/dL (33.0-36.5); MEAN CORPUSCULAR VOLUME 78.9 FL (78-98); MEAN PLATELET VOLUME 8.7 FL (7.4-10.4); MONOCYTES # (AUTO) 0.8 X10'3 (0-0.9); MONOCYTES % (AUTO) 7.2 % (2-12); NEUTROPHILS # (AUTO) 8.8 X10'3 (1.8-7.7); NEUTROPHILS % (AUTO) 80.7 % (42-75); PLATELET COUNT 290 X10'3 (140-440); RED BLOOD COUNT 4.68 X10'6 (4.70-6.10); RED CELL DISTRIBUTION WIDTH 18.9 % (11.5-14.5)
[2019-06-15 06:00] VITALS: BP 140/47
[2019-06-15 06:30] LABS: ALBUMIN 3.4 G/DL (3.4-5.0); ANION GAP 11 (8-16); BLOOD UREA NITROGEN 53 MG/DL (7-18); BUN/CREATININE RATIO 27.7 (5.4-32.0); CALCIUM 9.6 MG/DL (8.5-10.1); CHLORIDE 99 MMOL/L (99-107); CREATININE 1.91 MG/DL (0.60-1.10); GLUCOSE 184 MG/DL (70-104); POTASSIUM 3.9 MMOL/L (3.5-5.1); SODIUM 141 MMOL/L (135-145); TOTAL CARBON DIOXIDE 30.7 MMOL/L (24-32); eGFR 35 ML/MIN
--- NOTE | 2019-06-15 06:30 | NUR ---
Patient in room PCU 3027. I have received report from KRISTIE Hale and had the opportunity to ask questions and assume patient care.
--- NOTE | 2019-06-15 06:48 | NUR ---
Problems reprioritized. Patient report given, questions answered & plan of care reviewed with Devonte FLOWERS.
[2019-06-15 07:18] LABS: ANISOCYTOSIS 2+; ELLIPTOCYTES 2+; PLATELET ESTIMATE NORMAL; POLYCHROMASIA FEW
[2019-06-15 07:22] LABS: MICROCYTOSIS 1+; TEAR DROP CELLS 1+
[2019-06-15] MEDS: furosemide 40mg/4ml inj IV SCH (08:28)
[2019-06-15] MEDS: lactobacillus rhamnosus 10,000 MMU CELLS/CAPSULE PO SCH ×2 (08:29→20:30)
[2019-06-15] MEDS: apixaban 5mg tablet PO SCH ×2 (08:29→20:29)
[2019-06-15] MEDS: heparin, porcine 5000 units/ml vial SQ SCH ×2 (08:29→20:30)
[2019-06-15] MEDS: cefepime 1GM/NS ADD-VANTAGE 100 ML IV SCH ×2 (09:10)
[2019-06-15] MEDS: metolazone 2.5mg tablet PO SCH (09:31)
[2019-06-15] MEDS: insulin Lispro (HumaLOG) vial - multi-dose SQ SCH ×4 (09:37→22:58)
[2019-06-15 11:00] VITALS: BP 134/86
[2019-06-15 15:00] VITALS: BP 118/79
[2019-06-15 18:00] VITALS: BP_SYST 128; BP_SYST 159; BP_DIAS 101; BP_DIAS 79
--- NOTE | 2019-06-15 18:15 | NUR ---
Problems reprioritized. Patient report given, questions answered & plan of care reviewed with KISHA Quezada and Kisha Feliz .
--- NOTE | 2019-06-15 19:59 | NUR ---
Dr. Beverly Zuñiga in regards to Almas Malik's 27A. constipation CKD patient, MOM ordered, elevated BUN and CR. Call back at [phone] Tray FLOWERS.
[2019-06-15] MEDS: ROPINIRole 0.25mg tablet PO SCH (20:30)
[2019-06-15] MEDS: atenolol 50mg tablet PO SCH (21:00)
[2019-06-15] MEDS: polyethylene glycol 3350 17gm powd pack PO SCH ×2 (21:00→21:59)
[2019-06-15 22:00] VITALS: BP 143/44
[2019-06-15] MEDS: temazepam 15mg capsule PO PRN (22:00)
[2019-06-15] MEDS: insulin glargine (Lantus) pen - multi-dose SQ SCH (22:57)
[2019-06-16] MEDS: HYDROcodone/acetaminophen 10/325mg tab PO PRN ×3 (02:02→22:30)
[2019-06-16 02:30] VITALS: BP 128/47
[2019-06-16] MEDS: albuterol 2.5 MG/3 ML nebule NEB SCH ×6 (04:00→23:33)
[2019-06-16 06:00] VITALS: BP 147/54
--- NOTE | 2019-06-16 06:14 | NUR ---
Problems reprioritized. Patient report given, questions answered & plan of care reviewed with Denver.
--- NOTE | 2019-06-16 06:18 | NUR ---
Patient in room PCU 3027. I have received report from KRISTIE Feliz and had the opportunity to ask questions and assume patient care.
[2019-06-16 06:29] LABS: BASOPHILS % (AUTO) 0.3 % (0-1); EOSINOPHILS # (AUTO) 0.1 X10'3 (0-0.9); EOSINOPHILS % (AUTO) 1.5 % (0-6); HEMATOCRIT 36.7 % (42.0-52.0); HEMOGLOBIN 11.9 g/dl (14.0-17.9); LYMPHOCYTES # (AUTO) 1.2 X10'3 (1.1-4.8); LYMPHOCYTES % (AUTO) 14.2 % (21-51); MEAN CORPUSCULAR HGB CONC 32.5 g/dL (33.0-36.5); MEAN CORPUSCULAR VOLUME 80.1 FL (78-98); MONOCYTES # (AUTO) 0.6 X10'3 (0-0.9); MONOCYTES % (AUTO) 7.2 % (2-12); NEUTROPHILS # (AUTO) 6.3 X10'3 (1.8-7.7); NEUTROPHILS % (AUTO) 76.8 % (42-75); PLATELET COUNT 251 X10'3 (140-440); RED BLOOD COUNT 4.58 X10'6 (4.70-6.10); RED CELL DISTRIBUTION WIDTH 18.7 % (11.5-14.5); WHITE BLOOD COUNT 8.2 X10'3 (4.5-11.0)
[2019-06-16 06:34] LABS: ALBUMIN 3.3 G/DL (3.4-5.0); ANION GAP 8 (8-16); BLOOD UREA NITROGEN 49 MG/DL (7-18); BUN/CREATININE RATIO 29.3 (5.4-32.0); CALCIUM 8.6 MG/DL (8.5-10.1); CHLORIDE 97 MMOL/L (99-107); CREATININE 1.67 MG/DL (0.60-1.10); GLUCOSE 213 MG/DL (70-104); POTASSIUM 3.6 MMOL/L (3.5-5.1); SODIUM 137 MMOL/L (135-145); TOTAL CARBON DIOXIDE 31.9 MMOL/L (24-32); eGFR 40 ML/MIN
[2019-06-16 07:20] LABS: PLATELET ESTIMATE NORMAL
[2019-06-16 07:23] LABS: ELLIPTOCYTES 1+
[2019-06-16 07:24] LABS: ANISOCYTOSIS 2+; SCHISTOCYTES FEW
[2019-06-16] MEDS: heparin, porcine 5000 units/ml vial SQ SCH ×2 (08:28→22:20)
[2019-06-16] MEDS: apixaban 5mg tablet PO SCH ×2 (08:28→20:22)
[2019-06-16] MEDS: furosemide 40mg/4ml inj IV SCH (08:28)
[2019-06-16] MEDS: lactobacillus rhamnosus 10,000 MMU CELLS/CAPSULE PO SCH ×2 (08:28→20:13)
[2019-06-16] MEDS: docusate sod 100mg capsule PO SCH ×2 (08:28→20:13)
[2019-06-16] MEDS: insulin Lispro (HumaLOG) vial - multi-dose SQ SCH ×2 (08:49→13:36)
[2019-06-16] MEDS: metolazone 2.5mg tablet PO SCH (09:07)
[2019-06-16 11:00] VITALS: BP 121/76
[2019-06-16] MEDS: levoFLOXACIN 250mg tablet PO SCH (11:42)
[2019-06-16 15:00] VITALS: BP 124/51
--- NOTE | 2019-06-16 16:14 | NUR ---
PAGER ID: [phone] MESSAGE: [id number] Almas Malik was wondering if he could be put back on his Buspar 10mg BID and his atarax 10mg BID. KRISTIE Goff Ext [phone]
--- NOTE | 2019-06-16 18:28 | NUR ---
Problems reprioritized. Patient report given, questions answered & plan of care reviewed with KRISTIE Reyes.
--- NOTE | 2019-06-16 18:42 | NUR ---
Patient in room PCU 3027. I have received report from Denver FLOWERS and had the opportunity to ask questions and assume patient care.
[2019-06-16] MEDS: busPIRone 5mg tablet PO SCH (20:13)
[2019-06-16] MEDS: atenolol 50mg tablet PO SCH (20:13)
[2019-06-16] MEDS: ROPINIRole 0.25mg tablet PO SCH (20:13)
[2019-06-16] MEDS: polyethylene glycol 3350 17gm powd pack PO SCH (20:14)
[2019-06-16] MEDS ORDERED: hydrOXYzine 10 MG tablet PO PRN (21:00)
[2019-06-16 22:00] VITALS: BP 130/62
[2019-06-16] MEDS: insulin glargine (Lantus) pen - multi-dose SQ SCH (22:24)
--- NOTE | 2019-06-17 00:27 | NUR ---
Patient's O2 saturation was 82%. Tried to put patient's home CPAP on and he refused, offered a nasal cannula instead, still refused. have O2 sensor on. Will continue to monitor and try again later.
[2019-06-17 03:01] VITALS: BP 127/54
[2019-06-17] MEDS: albuterol 2.5 MG/3 ML nebule NEB SCH ×7 (03:55→22:59)
[2019-06-17 06:00] VITALS: BP 122/54
--- NOTE | 2019-06-17 06:12 | NUR ---
Problems reprioritized. Patient report given, questions answered & plan of care reviewed with Denver FLOWERS.
--- NOTE | 2019-06-17 06:14 | NUR ---
Patient in room PCU 3027. I have received report from KRISTIE Reyes and had the opportunity to ask questions and assume patient care.
[2019-06-17] MEDS: HYDROcodone/acetaminophen 10/325mg tab PO PRN ×2 (06:15→14:42)
[2019-06-17 06:35] LABS: BASOPHILS % (AUTO) 0.5 % (0-1); EOSINOPHILS # (AUTO) 0.1 X10'3 (0-0.9); EOSINOPHILS % (AUTO) 1.2 % (0-6); HEMOGLOBIN 12.5 g/dl (14.0-17.9); LYMPHOCYTES # (AUTO) 1.2 X10'3 (1.1-4.8); LYMPHOCYTES % (AUTO) 12.9 % (21-51); MEAN CORPUSCULAR HEMOGLOBIN 26.2 PG (27.0-31.0); MEAN CORPUSCULAR HGB CONC 32.8 g/dL (33.0-36.5); MEAN CORPUSCULAR VOLUME 80.1 FL (78-98); MEAN PLATELET VOLUME 8.7 FL (7.4-10.4); MONOCYTES # (AUTO) 0.7 X10'3 (0-0.9); MONOCYTES % (AUTO) 7.3 % (2-12); NEUTROPHILS # (AUTO) 7.2 X10'3 (1.8-7.7); NEUTROPHILS % (AUTO) 78.1 % (42-75); PLATELET COUNT 276 X10'3 (140-440); RED BLOOD COUNT 4.75 X10'6 (4.70-6.10); RED CELL DISTRIBUTION WIDTH 18.9 % (11.5-14.5); WHITE BLOOD COUNT 9.3 X10'3 (4.5-11.0)
[2019-06-17 07:07] LABS: ALBUMIN 3.5 G/DL (3.4-5.0); ANION GAP 9 (8-16); BLOOD UREA NITROGEN 44 MG/DL (7-18); BUN/CREATININE RATIO 25.3 (5.4-32.0); CALCIUM 9.7 MG/DL (8.5-10.1); CHLORIDE 99 MMOL/L (99-107); CREATININE 1.74 MG/DL (0.60-1.10); GLUCOSE 176 MG/DL (70-104); POTASSIUM 3.6 MMOL/L (3.5-5.1); SODIUM 141 MMOL/L (135-145); TOTAL CARBON DIOXIDE 32.9 MMOL/L (24-32); eGFR 39 ML/MIN
[2019-06-17] MEDS: apixaban 5mg tablet PO SCH ×2 (07:20→21:39)
[2019-06-17] MEDS: heparin, porcine 5000 units/ml vial SQ SCH ×2 (07:20→21:43)
[2019-06-17] MEDS: furosemide 40mg/4ml inj IV SCH (07:20)
[2019-06-17] MEDS: docusate sod 100mg capsule PO SCH ×2 (07:20→21:39)
[2019-06-17] MEDS: lactobacillus rhamnosus 10,000 MMU CELLS/CAPSULE PO SCH ×2 (07:21→21:39)
[2019-06-17] MEDS: busPIRone 5mg tablet PO SCH ×2 (07:21→21:40)
[2019-06-17 08:14] LABS: ANISOCYTOSIS 2+; PLATELET ESTIMATE NORMAL
[2019-06-17 08:15] LABS: ELLIPTOCYTES 2+; SCHISTOCYTES FEW; TEAR DROP CELLS FEW
[2019-06-17] MEDS: insulin Lispro (HumaLOG) vial - multi-dose SQ SCH ×4 (09:12→21:55)
[2019-06-17] MEDS: metolazone 2.5mg tablet PO SCH (10:22)
[2019-06-17] MEDS: levoFLOXACIN 250mg tablet PO SCH (10:22)
[2019-06-17 11:00] VITALS: BP 130/55
--- NOTE | 2019-06-17 14:34 | NUR ---
PAGER ID: [phone] MESSAGE: [id number] Almas Malik, Can he get a PRN anxiety med. He only has scheduled ones. KRISTIE Goff Ext [phone]
--- NOTE | 2019-06-17 14:57 | NUR ---
pt refusing bronchodilator in lieu of PT nad RA98% Addendum: 06/17/19 at 1459 by Tatiana Hylton RT Amended: Links added.
--- NOTE | 2019-06-17 14:58 | NUR ---
pt refusing bronchodilators NAD RA 99% room air Addendum: 06/17/19 at 1459 by Tatiana MCFARLANE Amended: Links added.
[2019-06-17 15:00] VITALS: BP 133/61
--- NOTE | 2019-06-17 16:22 | NUR ---
Student documentation: I have reviewed and agree with all interventions, assessments performed and documented by Raj He. Addendum: 06/17/19 at 1624 by Jacquie Watson - Instructdevon FLOWERS Amended: Links added.
[2019-06-17 18:00] VITALS: BP 116/46
--- NOTE | 2019-06-17 18:08 | NUR ---
Problems reprioritized. Patient report given, questions answered & plan of care reviewed with KRISTIE Reyes.
--- NOTE | 2019-06-17 18:30 | NUR ---
Patient in room PCU 3027. I have received report from Denver FLOWERS and had the opportunity to ask questions and assume patient care.
--- NOTE | 2019-06-17 18:38 | NUR ---
Patient in room PCU 3027. I have received report from Denver FLOWERS and had the opportunity to ask questions and assume patient care.
[2019-06-17] MEDS: atenolol 50mg tablet PO SCH (21:00)
[2019-06-17] MEDS: polyethylene glycol 3350 17gm powd pack PO SCH (21:38)
[2019-06-17] MEDS: ROPINIRole 0.25mg tablet PO SCH (21:40)
[2019-06-17] MEDS: insulin glargine (Lantus) pen - multi-dose SQ SCH (21:54)
[2019-06-17 22:00] VITALS: BP 120/49
[2019-06-17] MEDS: temazepam 15mg capsule PO PRN (22:40)
[2019-06-18] MEDS: HYDROcodone/acetaminophen 10/325mg tab PO PRN ×2 (01:58→08:20)
[2019-06-18] MEDS: albuterol 2.5 MG/3 ML nebule NEB SCH ×3 (02:52→11:11)
[2019-06-18 03:15] VITALS: BP 116/48
[2019-06-18 03:49] LABS: BASOPHILS % (AUTO) 0.3 % (0-1); EOSINOPHILS # (AUTO) 0.1 X10'3 (0-0.9); EOSINOPHILS % (AUTO) 1.1 % (0-6); HEMATOCRIT 34.5 % (42.0-52.0); HEMOGLOBIN 11.4 g/dl (14.0-17.9); LYMPHOCYTES # (AUTO) 1.4 X10'3 (1.1-4.8); MEAN CORPUSCULAR HEMOGLOBIN 26.1 PG (27.0-31.0); MEAN CORPUSCULAR VOLUME 79.3 FL (78-98); MEAN PLATELET VOLUME 9.5 FL (7.4-10.4); MONOCYTES # (AUTO) 0.6 X10'3 (0-0.9); MONOCYTES % (AUTO) 7.9 % (2-12); NEUTROPHILS # (AUTO) 5.9 X10'3 (1.8-7.7); NEUTROPHILS % (AUTO) 73.7 % (42-75); PLATELET COUNT 233 X10'3 (140-440); RED BLOOD COUNT 4.36 X10'6 (4.70-6.10); RED CELL DISTRIBUTION WIDTH 19.1 % (11.5-14.5)
[2019-06-18 03:58] LABS: ALBUMIN 3.1 G/DL (3.4-5.0); ANION GAP 8 (8-16); BLOOD UREA NITROGEN 45 MG/DL (7-18); CALCIUM 8.9 MG/DL (8.5-10.1); CHLORIDE 96 MMOL/L (99-107); GLUCOSE 163 MG/DL (70-104); POTASSIUM 3.1 MMOL/L (3.5-5.1); SODIUM 136 MMOL/L (135-145); TOTAL CARBON DIOXIDE 32.2 MMOL/L (24-32); eGFR 37 ML/MIN
[2019-06-18 04:22] LABS: PLATELET ESTIMATE NORMAL
[2019-06-18 04:23] LABS: ANISOCYTOSIS 2+; ELLIPTOCYTES 1+; MICROCYTOSIS 1+
[2019-06-18] MEDS ORDERED: potassium Cl 20 mEq SR tablet PO PRN (04:40)
[2019-06-18] MEDS ORDERED: potassium CL 10mEq/100ml bag 100 ML IV PRN (04:40)
[2019-06-18] MEDS ORDERED: magnesium Cl slow-release 64mg tablet PO PRN (04:40)
[2019-06-18] MEDS ORDERED: magnesium 4gm in 100ml NS 100 ML IV PRN (04:40)
--- NOTE | 2019-06-18 04:40 | NUR ---
Notified Dr. Ji of pt potassium level of 3.1 was [address] order to place pt on potasssium protocol.
[2019-06-18] MEDS: potassium Cl 20 mEq SR tablet PO PRN ×3 (04:49→15:12)
--- NOTE | 2019-06-18 05:51 | NUR ---
Orientee documentation: I have reviewed and agree with all interventions, assessments performed and documented by Raj FLOWERS.
[2019-06-18 06:00] VITALS: BP 146/84
--- NOTE | 2019-06-18 06:06 | NUR ---
Problems reprioritized. Patient report given, questions answered & plan of care reviewed with Denver FLOWERS.
--- NOTE | 2019-06-18 06:09 | NUR ---
Patient in room PCU 3027. I have received report from KRISTIE Reyes and had the opportunity to ask questions and assume patient care.
[2019-06-18] MEDS: lactobacillus rhamnosus 10,000 MMU CELLS/CAPSULE PO SCH (08:20)
[2019-06-18] MEDS: apixaban 5mg tablet PO SCH (08:20)
[2019-06-18] MEDS: docusate sod 100mg capsule PO SCH (08:20)
[2019-06-18] MEDS: busPIRone 5mg tablet PO SCH (08:20)
[2019-06-18] MEDS: furosemide 40mg/4ml inj IV SCH (08:25)
[2019-06-18] MEDS: metolazone 2.5mg tablet PO SCH (08:25)
[2019-06-18] MEDS: heparin, porcine 5000 units/ml vial SQ SCH (08:27)
[2019-06-18] MEDS: insulin Lispro (HumaLOG) vial - multi-dose SQ SCH ×2 (08:30→14:28)
[2019-06-18] MEDS: levoFLOXACIN 250mg tablet PO SCH (10:50)
[2019-06-18 11:00] VITALS: BP 146/55
[2019-06-18] MEDS ORDERED: Buspirone Hcl PO (12:33)
[2019-06-18] MEDS ORDERED: LEVO250T58 PO (12:33)
[2019-06-18] MEDS ORDERED: POTA20TA19 PO (12:36)
--- NOTE | 2019-06-18 14:19 | NUR ---
Initial: patient appears to have fair appetite. eating about 50% of meals. Presents to ED with shortness of breath. History of recent pneumonia and respiratory failure with admission 06/06/19. Currently admitted for treatment of chronic respiratory failure, bilateral pneumonia (resolving), hypokalemia (received replacement), all per MD note. Patient seen at bedside to discuss appetite and PO intake. Patient reported that he has a great appetite, but he wasn't eating because he didn't like the food. Gave patient alternative write in list for the carb controlled diet. At the time of RD visit patient was eating a Tuna sandwich that he states is very good and was eating all of it. Pt had no other concerns or questions. Will continue to follow. Recommend: 1. continue carb controlled, heart healthy diet 2. Bowel care as needed 3. weight per rx Addendum: 06/18/19 at [address] Amended: Links added.
[2019-06-18 15:00] VITALS: BP 153/52
--- NOTE | 2019-06-18 15:08 | NUR ---
Left message for that patient is being discharged and he needs a ride.
--- NOTE | 2019-06-18 16:05 | NUR ---
Arranged transportation to [address] [place] [address] via [employer] for patient, will brass pickler patient in lobby in 15 to 20 minutes per [employer].
--- NOTE | 2019-06-18 17:11 | NUR ---
Discharged at 1620. IV taken out and tele off. Meds called into [facility] on [address]. Cab picked up patient. Given DM survival skills. Appointment made with Tim FIELDS on 06/25/19 at 1130. Patient educated about appointment. Educated on meds, CHF and pneumonia. Stable for DC per MD. clinical services professional pointed patient for help services at home.
== END 2019-06-18 16:38 | disposition home health service (06) | DRG 291 ==
LOC: ER 08:52 → ED HOLD 11:44 → PCU 3S 19:26
PROVIDERS: ADMIT Family Medicine; ATTEND Family Medicine
DX: I13.0 Hypertensive heart and chronic kidney disease with heart failure and stage 1 through stage 4 chronic kidney disease, or unspecified chronic kidney disease (principal); I50.33 Acute on chronic diastolic (congestive) heart failure; J18.9 Pneumonia, unspecified organism; J44.0 Chronic obstructive pulmonary disease with (acute) lower respiratory infection; J96.11 Chronic respiratory failure with hypoxia; E66.2 Morbid (severe) obesity with alveolar hypoventilation; I48.91 Unspecified atrial fibrillation; D64.9 Anemia, unspecified; E11.22 Type 2 diabetes mellitus with diabetic chronic kidney disease; E11.649 Type 2 diabetes mellitus with hypoglycemia without coma; E11.40 Type 2 diabetes mellitus with diabetic neuropathy, unspecified; E78.5 Hyperlipidemia, unspecified; E87.6 Hypokalemia; F32.9 Major depressive disorder, single episode, unspecified; F60.9 Personality disorder, unspecified; F91.9 Conduct disorder, unspecified; G89.4 Chronic pain syndrome; N18.9 Chronic kidney disease, unspecified; F41.9 Anxiety disorder, unspecified; M54.9 Dorsalgia, unspecified; Z68.36 Body mass index [BMI] 36.0-36.9, adult; Z88.8 Allergy status to other drugs, medicaments and biological substances
CPT/HCPCS: 36415; 71045; 80048; 80053; 82948; 83735; 83880; 84132; 84484; 85025; 87081; 93005; 94640; 94760; 96365; 96375; 97110; 97116; 97162; 97530; 99285; G0378; J0692; J1644; J1815; J1940; J3475; J3480

== ENCOUNTER 2019-07-10 21:05 | Inpatient (IN) | payer MEDICARE ==
[~2019-07-10] VITALS: Ht 182.9 cm; Wt 127.0 kg
[~2019-07-10 21:05] MED LIST changes: -ASPI-1265 PO; -BUSP10TA11 PO; +Buspirone Hcl PO; +LEVO250T58 PO; +POTA20TA19 PO
--- NOTE | 2019-07-10 21:39 | NUR ---
RELIEVING RN FOR BREAK, THERAPEUTIC SPECIALIST AT BEDSIDE, PT IS RESTING QUIETLY ON GURNEY, RESP EVEN, SHALLOW AND UNLABORED, PT IS GCS 14, ORIENTED TO NAME ONLY, MOUTH IS DRY "I COULD DRINK A GALLON OF WATER", GENERALIZED WEAKNESS, LETHARGY, "SLEEPING ALOT" X1 DAY, WAITING TO BE EVALUATED BY PROVIDER
[2019-07-10] MEDS ORDERED: INSU100V12 SQ (21:56)
[2019-07-10] MEDS ORDERED: POTA20TA19 PO (21:56)
[2019-07-10] MEDS ORDERED: INSU100V13 SQ (21:56)
[2019-07-10] MEDS ORDERED: ATEN25TA PO (21:56)
[2019-07-10] MEDS ORDERED: BUSP10TA11 PO (21:56)
[2019-07-10] MEDS ORDERED: FLAX100032 PO (21:56)
[2019-07-10] MEDS ORDERED: METO-395 PO (21:56)
[2019-07-10] MEDS ORDERED: AMIO200T61 PO (21:56)
[2019-07-10 22:01] LABS: BASOPHILS % (AUTO) 0.6 % (0-1); EOSINOPHILS % (AUTO) 0.3 % (0-6); HEMATOCRIT 28.1 % (42.0-52.0); HEMOGLOBIN 9.4 g/dl (14.0-17.9); LYMPHOCYTES # (AUTO) 0.7 X10'3 (1.1-4.8); LYMPHOCYTES % (AUTO) 7.9 % (21-51); MEAN CORPUSCULAR HEMOGLOBIN 26.4 PG (27.0-31.0); MEAN CORPUSCULAR HGB CONC 33.4 g/dL (33.0-36.5); MONOCYTES # (AUTO) 0.8 X10'3 (0-0.9); MONOCYTES % (AUTO) 8.6 % (2-12); NEUTROPHILS # (AUTO) 7.3 X10'3 (1.8-7.7); NEUTROPHILS % (AUTO) 82.6 % (42-75); PLATELET COUNT 229 X10'3 (140-440); RED BLOOD COUNT 3.55 X10'6 (4.70-6.10); RED CELL DISTRIBUTION WIDTH 17.9 % (11.5-14.5); WHITE BLOOD COUNT 8.9 X10'3 (4.5-11.0)
[2019-07-10 22:09] LABS: PARTIAL THROMBOPLASTIN TIME 31 SECONDS (22-32)
[2019-07-10 22:10] LABS: ALANINE AMINOTRANSFERASE 59 U/L (12-78); ALBUMIN 2.4 G/DL (3.4-5.0); ALBUMIN/GLOBULIN RATIO 0.6 (1.1-1.5); ALKALINE PHOSPHATASE 93 IU/L (46-116); ANION GAP 8 (8-16); ASPARTATE AMINO TRANSFERASE 104 U/L (10-37); BILIRUBIN,TOTAL 0.9 MG/DL (0.1-1.0); BLOOD UREA NITROGEN 44 MG/DL (7-18); BUN/CREATININE RATIO 13.9 (5.4-32.0); CALCIUM 8.4 MG/DL (8.5-10.1); CHLORIDE 98 MMOL/L (99-107); CREATININE 3.17 MG/DL (0.60-1.10); GLUCOSE 178 MG/DL (70-104); SODIUM 135 MMOL/L (135-145); TOTAL CARBON DIOXIDE 29.2 MMOL/L (24-32); TOTAL PROTEIN 6.2 G/DL (6.4-8.2); eGFR 19 ML/MIN
[2019-07-10 22:12] LABS: POTASSIUM 4.2 MMOL/L (3.5-5.1)
[2019-07-10] MEDS ORDERED: normal saline 1000ml 1,000 ML IV ONE (23:30)
[2019-07-10 23:39] LABS: CLARITY,URINE CLEAR (Clear); COLOR,URINE YELLOW (Yellow); GLUCOSE, URINE NEGATIVE (Neg); KETONES,URINE NEGATIVE (Neg); LEUKOCYTE ESTERASE ,URINE NEGATIVE (Neg); NITRITES, URINE NEGATIVE (Neg); OCCULT BLOOD,URINE NEGATIVE (Neg); PROTEIN,URINE NEGATIVE (Neg); UROBILINOGEN,URINE 0.2 E.U/dL (0.2-1.0)
[2019-07-10 23:43] LABS: UA COLLECTION TYPE STRAIGHT CATH
--- NOTE | 2019-07-10 23:58 | NUR ---
PER EDMD LENORA, REDRAW LACTIC 2HOUR IN ONE MORE HOUR FLUIDS WERE JUST STARTED. WILL DRAW WITH 3HOUR TROP
[2019-07-11] MEDS ORDERED: CefTRIAXone 2gm/D5W 50ml 50 ML IV ONE (00:10)
[2019-07-11] MEDS ORDERED: ondansetron/PF 4mg/2ml inj IV PRN (00:20)
[2019-07-11] MEDS ORDERED: acetaminophen 325mg tablet PO PRN (00:20)
[2019-07-11] MEDS ORDERED: magnesium hydroxide 30ml (MOM) UD suspension PO PRN (00:20)
[2019-07-11] MEDS ORDERED: mag hydrox/Alum hydrox/simeth 30ml oral suspension PO PRN (00:20)
[2019-07-11] MEDS ORDERED: dextrose 50%-water 50ml dispensing syringe IV PRN ×2 (00:25)
[2019-07-11] MEDS ORDERED: dextrose ORAL solution 15 GM/59 ML bottle PO PRN ×2 (00:25)
[2019-07-11] MEDS ORDERED: MESSAGE TO PHARMACY PO ONE (00:25)
[2019-07-11] MEDS ORDERED: glucagon, human recombinant 1mg kit SUBCUT PRN (00:25)
[2019-07-11] MEDS: normal saline 1000ml 1,000 ML IV SCH ×2 (00:43→20:00)
--- NOTE | 2019-07-11 00:59 | NUR ---
ASSISTED PT TO COMMODE. PT WAS UNABLE TO HAVE BM. FRANCISCO CARE PROVIDED AND ASSISTED PT BACK TO BED AND TUCKED IN. NO FURTHER NEEDS AT THIS TIME. WILL CONTINTUE TO MONITOR.
--- NOTE | 2019-07-11 02:03 | NUR ---
Patient in room ED 13. I have received report from Loly ED RN and had the opportunity to ask questions and assume patient care.
[2019-07-11 02:30] VITALS: BP 137/50
--- NOTE | 2019-07-11 02:30 | NUR ---
Pt. arrived fr/ED via gurney in no acute distress. Appears fatigued. Slide board used to transfer to bed due to weakness in the extremities. Pt awake and oriented to place, time, and person. Reviewed POC w/pt. and educated to bed, room, and surroundings. C/O R shoulder pain. Six HR Troponin drawn per ED RN and brought to lab. EKG scheduled. IV initiated per MD order. Assessment commenced.
[2019-07-11] MEDS: HYDROcodone/acetaminophen 10/325mg tab PO PRN ×3 (02:58→20:58)
[2019-07-11 06:00] VITALS: BP 108/35
--- NOTE | 2019-07-11 06:23 | NUR ---
Problems reprioritized. Patient report given, questions answered & plan of care reviewed with Valerie RN.
--- NOTE | 2019-07-11 06:56 | NUR ---
Patient in room PCU 3014. I have received report from KRISTIE Schwartz and had the opportunity to ask questions and assume patient care. Pt sleeping. In no apparent distress. Will continue to monitor.
[2019-07-11] MEDS: pantoprazole 40mg Tablet.DR PO SCH (08:39)
[2019-07-11] MEDS: amiodarone 200mg tablet PO SCH (08:39)
[2019-07-11] MEDS: atorvastatin 10mg tablet PO SCH (08:39)
[2019-07-11] MEDS: apixaban 5mg tablet PO SCH ×2 (08:40→20:48)
[2019-07-11] MEDS: busPIRone 5mg tablet PO SCH ×2 (08:40→20:47)
[2019-07-11] MEDS: atenolol 25mg tablet PO SCH (08:40)
[2019-07-11] MEDS: amLODIPine 5mg tablet PO SCH (08:41)
[2019-07-11] MEDS: hydrOXYzine 25 MG tablet PO SCH ×3 (08:41→20:47)
[2019-07-11 11:00] VITALS: BP 123/35
[2019-07-11] MEDS: insulin Lispro (HumaLOG) vial - multi-dose SQ SCH ×3 (13:26→20:56)
[2019-07-11 15:00] VITALS: BP 131/49
[2019-07-11 18:00] VITALS: BP 113/33
--- NOTE | 2019-07-11 18:46 | NUR ---
Problems reprioritized. Patient report given, questions answered & plan of care reviewed with KRISTIE Jesus.
--- NOTE | 2019-07-11 18:47 | NUR ---
Patient in room PCU 3014. I have received report from KRISTIE Padilla and had the opportunity to ask questions and assume patient care.
[2019-07-11 20:00] VITALS: BP 114/57
[2019-07-11] MEDS: ROPINIRole 0.25mg tablet PO SCH (20:47)
[2019-07-11] MEDS: traZODone 50mg tablet PO SCH (20:48)
[2019-07-11] MEDS: insulin glargine (Lantus) pen - multi-dose SQ SCH (20:54)
[2019-07-12 02:00] VITALS: BP 132/51
[2019-07-12] MEDS: normal saline 1000ml 1,000 ML IV SCH ×2 (03:52→22:40)
[2019-07-12] MEDS: HYDROcodone/acetaminophen 10/325mg tab PO PRN ×2 (05:57→16:51)
[2019-07-12] MEDS ORDERED: CefTRIAXone/D5W-Rocephin 1gm 50 ML IV SCH (06:00)
--- NOTE | 2019-07-12 06:29 | NUR ---
Problems reprioritized. Patient report given, questions answered & plan of care reviewed with KRISTIE Skinner.
[2019-07-12 06:38] LABS: BASOPHILS # (AUTO) 0.1 X10'3 (0-0.2); BASOPHILS % (AUTO) 0.7 % (0-1); EOSINOPHILS # (AUTO) 0.1 X10'3 (0-0.9); EOSINOPHILS % (AUTO) 1.1 % (0-6); HEMATOCRIT 27.9 % (42.0-52.0); HEMOGLOBIN 9.1 g/dl (14.0-17.9); LYMPHOCYTES # (AUTO) 0.4 X10'3 (1.1-4.8); LYMPHOCYTES % (AUTO) 5.5 % (21-51); MEAN CORPUSCULAR HEMOGLOBIN 26.1 PG (27.0-31.0); MEAN CORPUSCULAR HGB CONC 32.7 g/dL (33.0-36.5); MEAN CORPUSCULAR VOLUME 79.6 FL (78-98); MEAN PLATELET VOLUME 8.2 FL (7.4-10.4); MONOCYTES # (AUTO) 0.5 X10'3 (0-0.9); MONOCYTES % (AUTO) 6.9 % (2-12); NEUTROPHILS # (AUTO) 6.7 X10'3 (1.8-7.7); NEUTROPHILS % (AUTO) 85.8 % (42-75); PLATELET COUNT 240 X10'3 (140-440); RED BLOOD COUNT 3.51 X10'6 (4.70-6.10); RED CELL DISTRIBUTION WIDTH 18.9 % (11.5-14.5); WHITE BLOOD COUNT 7.9 X10'3 (4.5-11.0)
--- NOTE | 2019-07-12 06:45 | NUR ---
Patient in room PCU 3014. I have received report from Edin and had the opportunity to ask questions and assume patient care.
[2019-07-12 07:00] VITALS: BP 118/42
[2019-07-12 07:07] LABS: ALBUMIN 2.3 G/DL (3.4-5.0); ALBUMIN/GLOBULIN RATIO 0.6 (1.1-1.5); ALKALINE PHOSPHATASE 92 IU/L (46-116); ANION GAP 9 (8-16); BLOOD UREA NITROGEN 56 MG/DL (7-18); BUN/CREATININE RATIO 22.5 (5.4-32.0); CALCIUM 8.6 MG/DL (8.5-10.1); CHLORIDE 97 MMOL/L (99-107); CREATININE 2.49 MG/DL (0.60-1.10); GLUCOSE 232 MG/DL (70-104); POTASSIUM 3.7 MMOL/L (3.5-5.1); SODIUM 133 MMOL/L (135-145); TOTAL CARBON DIOXIDE 27.4 MMOL/L (24-32); TOTAL PROTEIN 6.2 G/DL (6.4-8.2); eGFR 25 ML/MIN
[2019-07-12 07:35] LABS: MICROCYTOSIS 1+; PLATELET ESTIMATE NORMAL
[2019-07-12 07:36] LABS: ANISOCYTOSIS 2+; ELLIPTOCYTES 2+; SCHISTOCYTES FEW
[2019-07-12 07:37] LABS: POLYCHROMASIA FEW
[2019-07-12] MEDS: hydrOXYzine 25 MG tablet PO SCH ×3 (07:41→22:05)
[2019-07-12] MEDS: busPIRone 5mg tablet PO SCH ×2 (07:42→19:45)
[2019-07-12] MEDS: apixaban 5mg tablet PO SCH ×2 (07:43→19:45)
[2019-07-12] MEDS: atorvastatin 10mg tablet PO SCH (07:44)
[2019-07-12] MEDS: amiodarone 200mg tablet PO SCH (07:44)
[2019-07-12] MEDS: pantoprazole 40mg Tablet.DR PO SCH (07:44)
[2019-07-12] MEDS: amLODIPine 5mg tablet PO SCH (07:53)
[2019-07-12] MEDS: CefTRIAXone 2gm/D5W 50ml 50 ML IV SCH (07:54)
[2019-07-12] MEDS: atenolol 25mg tablet PO SCH (08:00)
--- NOTE | 2019-07-12 08:30 | NUR ---
Spoke with TERESITA Murray regarding Atenolol parameters to hold for HR<60 - Cari stated to go ahead and administer Atenolol since the patient should be used to it. HR upper 50's. Pt. is completely asymtomatic this AM. Will continue to monitor.
[2019-07-12] MEDS: insulin Lispro (HumaLOG) vial - multi-dose SQ SCH ×3 (09:06→19:45)
[2019-07-12 09:16] LABS: ALANINE AMINOTRANSFERASE 156 U/L (12-78); ASPARTATE AMINO TRANSFERASE 172 U/L (10-37); BILIRUBIN,TOTAL 0.7 MG/DL (0.1-1.0); CHOL/HDL RATIO 3.4 (0.00-4.99); CHOLESTEROL 88 MG/DL (0-200); HDL CHOLESTEROL 26 MG/DL (35-60); LDL CHOLESTEROL 52 MG/DL (50-100); TRIGLYCERIDES 90 MG/DL (20-135)
[2019-07-12 11:00] VITALS: BP 131/56
[2019-07-12 15:00] VITALS: BP 130/49
[2019-07-12 18:00] VITALS: BP 109/41
--- NOTE | 2019-07-12 18:11 | NUR ---
Problems reprioritized. Patient report given, questions answered & plan of care reviewed with Elvin.
--- NOTE | 2019-07-12 19:01 | NUR ---
Patient in room PCU 3014b. I have received report from KRISTIE Skinner and had the opportunity to ask questions and assume patient care. Patient awake for bedside report, on 2L NC and stable at this time. NS infusing at 75 mL/hr per provider order. Will continue to monitor closely.
[2019-07-12] MEDS: lactobacillus rhamnosus 10,000 MMU CELLS/CAPSULE PO SCH (19:45)
[2019-07-12] MEDS: ROPINIRole 0.25mg tablet PO SCH (21:55)
[2019-07-12] MEDS: traZODone 50mg tablet PO SCH (21:55)
[2019-07-12] MEDS: insulin glargine (Lantus) pen - multi-dose SQ SCH (21:58)
[2019-07-12 22:00] VITALS: BP 122/41
--- NOTE | 2019-07-12 22:00 | NUR ---
Patient dislodged and pulled out PIV in right hand. Patient is refusing any attempts at IV access at this time. Educated patient on importance of IV access and agreed to reattempt IV access in the morning.
--- NOTE | 2019-07-13 00:28 | NUR ---
Patient demanding to be sat in wheel chair outside room. Patient had already received evening dose of atarax and trazodone and advised patient that getting up out of bed is not safe. Patient became threatening and noncompliant and stated, "Well I'm going to get up in my wheelchair any way." Patient is now in hallway in view of RN, charge entry specialist, and staff development nurse on telemetry unit.
[2019-07-13 02:00] VITALS: BP 120/44
--- NOTE | 2019-07-13 04:53 | NUR ---
Patient extremely rude and manipulative to staff. Told PCU patient home day care provider while aiding in toileting, "You need to help me find my shanell," grunting and exhibiting crude behavior such as leaning on the patient home day care provider while urinating. PCT addressed behavior and became extremely angry and raised voice and stated, "I'm paying you to do your God damn job, so do your job!" Addressed this issue with patient and charge nurse made aware but remains noncompliant and condescending toward staff.
[2019-07-13 05:27] LABS: BASOPHILS % (AUTO) 0.4 % (0-1); EOSINOPHILS # (AUTO) 0.1 X10'3 (0-0.9); EOSINOPHILS % (AUTO) 0.9 % (0-6); HEMATOCRIT 28.3 % (42.0-52.0); HEMOGLOBIN 9.5 g/dl (14.0-17.9); LYMPHOCYTES # (AUTO) 0.4 X10'3 (1.1-4.8); LYMPHOCYTES % (AUTO) 5.8 % (21-51); MEAN CORPUSCULAR HEMOGLOBIN 26.2 PG (27.0-31.0); MEAN CORPUSCULAR HGB CONC 33.5 g/dL (33.0-36.5); MEAN CORPUSCULAR VOLUME 78.2 FL (78-98); MEAN PLATELET VOLUME 7.7 FL (7.4-10.4); MONOCYTES # (AUTO) 0.6 X10'3 (0-0.9); MONOCYTES % (AUTO) 7.4 % (2-12); NEUTROPHILS # (AUTO) 6.5 X10'3 (1.8-7.7); NEUTROPHILS % (AUTO) 85.5 % (42-75); PLATELET COUNT 251 X10'3 (140-440); RED BLOOD COUNT 3.62 X10'6 (4.70-6.10); RED CELL DISTRIBUTION WIDTH 18.8 % (11.5-14.5); WHITE BLOOD COUNT 7.7 X10'3 (4.5-11.0)
[2019-07-13 06:16] LABS: ALANINE AMINOTRANSFERASE 274 U/L (12-78); ALBUMIN 2.3 G/DL (3.4-5.0); ALBUMIN/GLOBULIN RATIO 0.6 (1.1-1.5); ALKALINE PHOSPHATASE 98 IU/L (46-116); ANION GAP 13 (8-16); ASPARTATE AMINO TRANSFERASE 207 U/L (10-37); BILIRUBIN,TOTAL 0.7 MG/DL (0.1-1.0); BLOOD UREA NITROGEN 59 MG/DL (7-18); BUN/CREATININE RATIO 27.4 (5.4-32.0); CALCIUM 8.3 MG/DL (8.5-10.1); CHLORIDE 101 MMOL/L (99-107); CREATININE 2.15 MG/DL (0.60-1.10); GLUCOSE 191 MG/DL (70-104); POTASSIUM 3.8 MMOL/L (3.5-5.1); SODIUM 141 MMOL/L (135-145); TOTAL CARBON DIOXIDE 27.5 MMOL/L (24-32); TOTAL PROTEIN 6.4 G/DL (6.4-8.2); eGFR 30 ML/MIN
--- NOTE | 2019-07-13 06:24 | NUR ---
Patient in room PCU 3014. I have received report from Elvin and had the opportunity to ask questions and assume patient care.
--- NOTE | 2019-07-13 06:33 | NUR ---
Problems reprioritized. Patient report given, questions answered & plan of care reviewed with KRISTIE Skinner.
[2019-07-13 07:00] VITALS: BP 145/70
[2019-07-13 07:08] LABS: ANISOCYTOSIS 2+; MICROCYTOSIS 1+; PLATELET ESTIMATE NORMAL
[2019-07-13 07:09] LABS: HYPOCHROMASIA 1+
[2019-07-13 07:10] LABS: ELLIPTOCYTES 1+; POLYCHROMASIA 1+; TEAR DROP CELLS FEW
[2019-07-13] MEDS: atorvastatin 10mg tablet PO SCH (07:44)
[2019-07-13] MEDS: apixaban 5mg tablet PO SCH ×2 (07:45→20:33)
[2019-07-13] MEDS: hydrOXYzine 25 MG tablet PO SCH ×3 (07:45→20:33)
[2019-07-13] MEDS: pantoprazole 40mg Tablet.DR PO SCH (07:45)
[2019-07-13] MEDS: HYDROcodone/acetaminophen 10/325mg tab PO PRN ×2 (07:45→18:46)
[2019-07-13] MEDS: amiodarone 200mg tablet PO SCH (07:45)
[2019-07-13] MEDS: lactobacillus rhamnosus 10,000 MMU CELLS/CAPSULE PO SCH ×2 (07:46→20:31)
[2019-07-13] MEDS: busPIRone 5mg tablet PO SCH ×2 (07:46→20:32)
[2019-07-13] MEDS: amLODIPine 5mg tablet PO SCH (07:46)
[2019-07-13] MEDS: CefTRIAXone 2gm/D5W 50ml 50 ML IV SCH (07:46)
[2019-07-13] MEDS: atenolol 25mg tablet PO SCH (07:46)
[2019-07-13] MEDS: insulin Lispro (HumaLOG) vial - multi-dose SQ SCH ×3 (09:21→18:43)
[2019-07-13 11:00] VITALS: BP 120/45
[2019-07-13] MEDS: normal saline 1000ml 1,000 ML IV SCH ×2 (13:40→23:20)
[2019-07-13 15:00] VITALS: BP 131/45
[2019-07-13 18:00] VITALS: BP 105/36
--- NOTE | 2019-07-13 18:30 | NUR ---
Problems reprioritized. Patient report given, questions answered & plan of care reviewed with eryn.
--- NOTE | 2019-07-13 18:33 | NUR ---
Patient in room PCU 3014. I have received report from Susanne FLOWERS and had the opportunity to ask questions and assume patient care.
[2019-07-13] MEDS: traZODone 50mg tablet PO SCH (20:30)
[2019-07-13] MEDS: ROPINIRole 0.25mg tablet PO SCH (20:31)
[2019-07-13] MEDS: insulin glargine (Lantus) pen - multi-dose SQ SCH (21:14)
[2019-07-13 22:00] VITALS: BP 130/48
[2019-07-14 02:00] VITALS: BP 127/45
[2019-07-14] MEDS: HYDROcodone/acetaminophen 10/325mg tab PO PRN ×2 (03:45→08:39)
[2019-07-14 05:29] LABS: BASOPHILS % (AUTO) 0.6 % (0-1); EOSINOPHILS # (AUTO) 0.1 X10'3 (0-0.9); EOSINOPHILS % (AUTO) 1.2 % (0-6); HEMATOCRIT 29.1 % (42.0-52.0); HEMOGLOBIN 9.5 g/dl (14.0-17.9); LYMPHOCYTES # (AUTO) 0.4 X10'3 (1.1-4.8); LYMPHOCYTES % (AUTO) 5.3 % (21-51); MEAN CORPUSCULAR HEMOGLOBIN 25.9 PG (27.0-31.0); MEAN CORPUSCULAR HGB CONC 32.7 g/dL (33.0-36.5); MEAN CORPUSCULAR VOLUME 79.1 FL (78-98); MEAN PLATELET VOLUME 7.7 FL (7.4-10.4); MONOCYTES # (AUTO) 0.6 X10'3 (0-0.9); NEUTROPHILS # (AUTO) 6.1 X10'3 (1.8-7.7); NEUTROPHILS % (AUTO) 84.9 % (42-75); PLATELET COUNT 222 X10'3 (140-440); RED BLOOD COUNT 3.68 X10'6 (4.70-6.10); RED CELL DISTRIBUTION WIDTH 18.6 % (11.5-14.5); WHITE BLOOD COUNT 7.2 X10'3 (4.5-11.0)
[2019-07-14 06:25] LABS: ANISOCYTOSIS 2+; MICROCYTOSIS 1+; PLATELET ESTIMATE NORMAL
[2019-07-14 06:26] LABS: ELLIPTOCYTES FEW
--- NOTE | 2019-07-14 06:28 | NUR ---
Patient in room PCU 3014. I have received report from [facility] and had the opportunity to ask questions and assume patient care.
--- NOTE | 2019-07-14 06:32 | NUR ---
Problems reprioritized. Patient report given, questions answered & plan of care reviewed with Susanne FLOWERS.
[2019-07-14 06:47] LABS: ALANINE AMINOTRANSFERASE 196 U/L (12-78); ALBUMIN 2.2 G/DL (3.4-5.0); ALBUMIN/GLOBULIN RATIO 0.6 (1.1-1.5); ALKALINE PHOSPHATASE 96 IU/L (46-116); ANION GAP 10 (8-16); ASPARTATE AMINO TRANSFERASE 85 U/L (10-37); BILIRUBIN,TOTAL 0.6 MG/DL (0.1-1.0); BLOOD UREA NITROGEN 55 MG/DL (7-18); BUN/CREATININE RATIO 32.2 (5.4-32.0); CALCIUM 8.7 MG/DL (8.5-10.1); CHLORIDE 103 MMOL/L (99-107); CREATININE 1.71 MG/DL (0.60-1.10); GLUCOSE 147 MG/DL (70-104); POTASSIUM 3.6 MMOL/L (3.5-5.1); SODIUM 141 MMOL/L (135-145); TOTAL CARBON DIOXIDE 28.3 MMOL/L (24-32); TOTAL PROTEIN 6.2 G/DL (6.4-8.2); eGFR 39 ML/MIN
[2019-07-14 07:00] VITALS: BP 141/58
[2019-07-14] MEDS ORDERED: amiodarone 100mg tablet PO SCH (08:00)
[2019-07-14 08:05] LABS: HYPOCHROMASIA 1+; POLYCHROMASIA FEW
[2019-07-14 08:10] LABS: HBSAG SCREEN Negative (Negative); HEP A AB, IGM Negative (Negative); HEP B CORE AB, IGM Negative (Negative); HEPATITIS C ANTIBODY <0.1 s/co ratio (0.0-0.9)
[2019-07-14] MEDS: atenolol 25mg tablet PO SCH (08:38)
[2019-07-14] MEDS: apixaban 5mg tablet PO SCH (08:40)
[2019-07-14] MEDS: hydrOXYzine 25 MG tablet PO SCH (08:40)
[2019-07-14] MEDS: busPIRone 5mg tablet PO SCH (08:40)
[2019-07-14] MEDS: pantoprazole 40mg Tablet.DR PO SCH (08:40)
[2019-07-14] MEDS: CefTRIAXone 2gm/D5W 50ml 50 ML IV SCH (08:41)
[2019-07-14] MEDS: lactobacillus rhamnosus 10,000 MMU CELLS/CAPSULE PO SCH (08:42)
[2019-07-14] MEDS: amLODIPine 5mg tablet PO SCH (08:42)
[2019-07-14] MEDS: insulin Lispro (HumaLOG) vial - multi-dose SQ SCH (09:54)
[2019-07-14] MEDS ORDERED: FURO-149 PO (10:59)
[2019-07-14 11:00] VITALS: BP 130/75
--- NOTE | 2019-07-14 11:58 | NUR ---
O2 Sat at rest on room air:80% If below 89%: Recovery O2 Sat at rest on 2 LPM: 93%:___% via nasal cannula No further documentation is necessary. If O2 Sat did not drop below 89% on room air,ambulate patient on room air. O2 Sat while ambulating on room air:___% Recovery O2 Sat while ambulating on ___LPM:___% No further documentation is necessary. If patient does not drop below 89% while ambulating, he/she does not qualify for home O2.
--- NOTE | 2019-07-14 13:30 | NUR ---
Patient was cleared to discharge home. Patient was educated on medication management and importance of following up with his supervisor paper coating and his primary physician within 1 week. Patient opted to have his sign the discharge paperwork for him. Patient also declined to eat or have his blood sugar covered prior to discharge. Patient stated he has oxygen at home already through [facility]. Educated patient regarding elevation of his legs and compliance with his diuretics. Patient and his stated that the neighbor will be helping until home health is able assist. PIV removed and tele removed. Patient left [facility] in stable condition.
== END 2019-07-14 12:57 | disposition home health service (06) | DRG 682 ==
LOC: ER 21:06 → ED HOLD 07-11 00:16 → PCU 3S 07-11 02:15
PROVIDERS: ADMIT Internal Medicine; ATTEND Family Medicine
DX: N17.0 Acute kidney failure with tubular necrosis (principal); J18.9 Pneumonia, unspecified organism; E66.2 Morbid (severe) obesity with alveolar hypoventilation; E87.1 Hypo-osmolality and hyponatremia; I13.0 Hypertensive heart and chronic kidney disease with heart failure and stage 1 through stage 4 chronic kidney disease, or unspecified chronic kidney disease; I50.32 Chronic diastolic (congestive) heart failure; G25.3 Myoclonus; D64.9 Anemia, unspecified; E11.22 Type 2 diabetes mellitus with diabetic chronic kidney disease; E78.5 Hyperlipidemia, unspecified; E86.0 Dehydration; I25.10 Atherosclerotic heart disease of native coronary artery without angina pectoris; I44.0 Atrioventricular block, first degree; I48.0 Paroxysmal atrial fibrillation; N18.9 Chronic kidney disease, unspecified; F41.9 Anxiety disorder, unspecified; T46.2X5A Adverse effect of other antidysrhythmic drugs, initial encounter; G89.29 Other chronic pain; M54.9 Dorsalgia, unspecified; R74.0 Nonspecific elevation of levels of transaminase and lactic acid dehydrogenase [LDH]; Z88.8 Allergy status to other drugs, medicaments and biological substances; I25.2 Old myocardial infarction; Z79.899 Other long term (current) drug therapy; Z68.38 Body mass index [BMI] 38.0-38.9, adult; Y92.89 Other specified places as the place of occurrence of the external cause
CPT/HCPCS: 36415; 71045; 76700; 80053; 80061; 80074; 81003; 82948; 83605; 83880; 84145; 84484; 85025; 85610; 85730; 87040; 87077; 87081; 87186; 93005; 94760; 97116; 97161; 97530; 97535; 99285; G0378; J0696; J1815; J7030; Z7610